=== PATIENT | female | born 1990 | race Caucasian/White ===

== ENCOUNTER 2022-03-18 07:52 | Outpatient (CLI) | payer BC, SELFPAY ==
[2022-03-18 10:43] LABS: Cholesterol* 170 mg/dL (90-199); Glucose* 106 mg/dL (60-115); Triglycerides* 92 mg/dL (40-149)
[2022-03-18 10:44] LABS: HDL Cholesterol* 65 mg/dL (>=50); LDL Cholesterol Calculated 87 mg/dL (<100)
== END 2022-03-18 07:53 | disposition home or self-care (01) ==
PROVIDERS: Visit Provider Physician Assistant
DX: Z13.6 Encounter for screening for cardiovascular disorders (principal); Z13.1 Encounter for screening for diabetes mellitus
CPT/HCPCS: 80061; 82947

== ENCOUNTER 2022-06-17 08:45 | Outpatient (CLI) | payer BC, SELFPAY | END 2022-06-17 08:46 | disposition home or self-care (01) | LOC: NFLDREF 08:46 | PROVIDERS: Visit Provider Registered Nurse | DX: Z13.29 Encounter for screening for other suspected endocrine disorder (principal); Z13.1 Encounter for screening for diabetes mellitus | CPT/HCPCS: 84443 ==

== ENCOUNTER 2022-10-27 15:04 | Outpatient (CLI) | payer BC, SELFPAY | END 2022-10-27 15:05 | disposition home or self-care (01) | LOC: NFLDREF 15:06 | PROVIDERS: Visit Provider Registered Nurse | DX: Z31.69 Encounter for other general counseling and advice on procreation (principal) | CPT/HCPCS: 84144 ==

== ENCOUNTER 2022-11-03 10:24 | Outpatient (CLI) | payer BC, SELFPAY | END 2022-11-03 10:25 | disposition home or self-care (01) | LOC: LONREF 10:26 | PROVIDERS: Visit Provider Registered Nurse | DX: N97.9 Female infertility, unspecified (principal); Z31.69 Encounter for other general counseling and advice on procreation | CPT/HCPCS: 84144 ==

== ENCOUNTER 2022-11-14 10:13 | Outpatient (CLI) | payer BC, SELFPAY ==
[2022-11-15 07:26] LABS: Follicle Stimulating Hormone 12.2 IU/L
[2022-11-15 07:32] LABS: Estradiol Premenol Female 52 pg/mL
== END 2022-11-14 10:14 | disposition home or self-care (01) ==
LOC: LAB 10:14
PROVIDERS: Obstetrics & Gynecology; Visit Provider Registered Nurse
DX: Z01.818 Encounter for other preprocedural examination (principal); Z31.9 Encounter for procreative management, unspecified
CPT/HCPCS: 36415; 82670; 83001; 84443

== ENCOUNTER 2022-11-16 10:50 | Outpatient (CLI) | payer BC, SELFPAY ==
--- NOTE | 2022-11-16 11:15 | CRLHL7_ITS ---
For Patients: As a result of the Cures Act, medical imaging exams and procedure reports are released immediately into your electronic medical record. You may view this report before your referring provider. If you have questions, please contact your health care provider. Indication: Encounter for procreative management Technique: Hysterosalpingogram. Fluoroscopic time 0.29 minutes. IMPRESSION: Normal patency of the fallopian tubes with spillage into the peritoneal cavity. No filling defect within the endometrial canal. Dictated by Karan Mercado MD @ 11/16/2022 12:49:32 PM (Electronically Signed)
--- NOTE | 2022-11-16 16:37 | W.PM.GYNPROC ---
Procedure Note Date of procedure: 11/16/22 Pre-op diagnosis: Primary infertility Post-op diagnosis: same Procedure: Hysterosalpingogram Anesthesia: none Complications: None Surgeon: Marcie Berg MD Pathology: none sent Findings: Patent fallopian tubes bilaterally Normal contour of endometrial cavity Procedure Description: After obtaining verbal consent, the patient was placed in the dorsal lithotomy position on the x-ray table. An open-sided bivalve speculum was introduced into the vagina and the cervix easily visualized. The cervix and vagina were then prepped with Betadine. The anterior lip of the cervix was grasped with a single-tooth tenaculum for traction. A balloon tipped double-lumen catheter was then gently inserted through the cervical opening into the uterine cavity to the level of the fundus. The balloon was insufflated with 3 mL of air, causing intolerable pain to the patient. The balloon was then deflated to 1.5 mL of air. The [speculum was removed. The patient was repositioned in the supine position, covered, and the radiologist was called to the room. A hysterosalpingogram was then performed. A total of approximately 4 cc of Optiray 300 water soluble contrast dye was injected through the double-lumen catheter under moderate pressure. There was immediate fill of the uterine cavity to the cornua and immediate fill of both fallopian tubes and free spillage on each side. The balloon was deflated and the endometrial cavity was found to have a normal contour. The catheter was removed. The tenaculum was removed from the cervix and speculum exam revealed hemostasis. The patient tolerated the procedure with great difficulty due to intense cramping during the procedure. She did feel sweaty and lightheaded afterwards, and was given water and a snack.
== END 2022-11-16 10:51 | disposition home or self-care (01) ==
PROVIDERS: Visit Provider Obstetrics & Gynecology
DX: Z31.9 Encounter for procreative management, unspecified (principal)
CPT/HCPCS: 58340; 74740; 83520; A4649; Q9967

== ENCOUNTER 2022-12-15 15:12 | Outpatient (CLI) | payer BC, SELFPAY | END 2022-12-15 15:13 | disposition home or self-care (01) | PROVIDERS: Visit Provider Registered Nurse | DX: N92.6 Irregular menstruation, unspecified (principal); N97.9 Female infertility, unspecified | CPT/HCPCS: 83498; 84270; 84402; 84403 ==

== ENCOUNTER 2022-12-28 07:13 | Outpatient (CLI) | payer BC, SELFPAY ==
--- NOTE | 2022-12-28 07:15 | CRLHL7_ITS ---
For Patients: As a result of the Century Cures Act, medical imaging exams and procedure reports are released immediately into your electronic medical record. You may view this report before your referring provider. If you have questions, please contact your health care provider. INDICATION: irregular menses, infertility COMPARISON: none TECHNIQUE: 2D meyers scale and color Doppler images were acquired of the pelvis using a transabdominal and transvaginal approach. FINDINGS: A submucosal fibroid is present measuring 1.1 x 0.7 x 1.1 cm. A mid uterine fundal intramural fibroid is present measuring 10 x 7 x 8 millimeters. A small right uterine fundal fibroid also noted measuring 5 x 4 x 6 millimeters. Uterus measures 6.7 cm in length by 3.2 cm in AP diameter by 4.0 cm in transverse dimension. Circumscribed heterogeneously hypoechoic mass in the left adnexa measures 3.6 x 2.1 x 2.1 cm, probable exophytic fibroid. The endometrial lining measures 8 mm in composite thickness. The right ovary measures 3.9 x 1.5 x 2.9 cm in size and the left ovary measures 2.9 x 1.5 x 2.4 cm. The ovaries demonstrate normal arterial and venous blood flow on color Doppler analysis. There are no suspicious fluid collections within the cul-de-sac. IMPRESSION: Submucosal uterine fibroid measuring 1.1 cm. Endometrial thickness 8 millimeters. Left adnexal mass located between the uterus and ovary measuring 3.6 x 2.1 x 2.1 cm. This is likely a pedunculated fibroid although pelvic MRI recommended for confirmation. Other smaller intramural fibroids are present measuring 10 millimeters and 6 millimeters. Dictated by Karan Mercado MD @ 12/28/2022 8:35:44 AM (Electronically Signed)
== END 2022-12-28 07:14 | disposition home or self-care (01) ==
LOC: US 07:13
PROVIDERS: Visit Provider Registered Nurse
DX: N92.6 Irregular menstruation, unspecified (principal); N97.9 Female infertility, unspecified; D25.0 Submucous leiomyoma of uterus; R19.00 Intra-abdominal and pelvic swelling, mass and lump, unspecified site; D25.1 Intramural leiomyoma of uterus
CPT/HCPCS: 76830; 76856

== ENCOUNTER 2023-03-09 10:04 | Outpatient (REF) | payer BC, SELFPAY ==
--- OUTSIDE RECORDS SUMMARY | 2023-03-09 10:07 | XMS_ITS | Clinical Summary ---
Author Name Unknown Organization [facility] [employer] [facility] Address [address] [address] Phone Care Team Providers Care Sugar House Supervisor Name Role Phone Licha Marc Connie [facility] Primary Care Provider +1- [phone] Allergies Active Allergy Reactions Criticality Noted Date Comments Amoxicillin Hives High 01/07/2021 Medications Medication Sig Dispensed Refills Start Date End Date Status Lactobacillus (PROBIOTIC ACIDOPHILUS OR) Take by mouth. 0 Active Calcium Polycarbophil (FIBER-CAPS OR) Take by mouth. 0 Activ e omeprazole (PriLOSEC) 20 MG delayed-release capsuleIndications:Gas troesophageal reflux disease without esophagitis Take 1 Capsule by mouth one time a day. Take before meals. Do not crush. 30 Capsule 0 06/03/2022 Active Active Problems Problem Noted Date Diagnosed Date Generalized abdominal pain 06/24/2021 Last Assessment & Plan: Discussed with patient differential diagnosis of gallbladder disease, GERD, stomach ulcers, irritable bowel, food sensitivities, among other GI disorders. Will check labs today, unremarkable. Due to insurance CT scan will need prior authorization for clinic visit, however US would be a reasonable option to rule out gallbladder issues as this could be a likely culprit. Also discussed issues with GERD and use of antiacids. Will wait for US results and review options from there. If worsening symptoms, pain that increases, dark stools, fevers, follow up in ER. Will follow up with patient after US tomorrow. Spot, [id number] 05/05/2018 Immunizations Name Administration Dates Next Due COVID-19 mRNA Vaccine (Moderna - 18+ Yrs) 2020,04/11/2020,03/14/2020 Influenza (3+ Yrs) NPF-Multi Dose Vial (Flu Clinic) 12/11/2019 Influenza Quad Preservative Free 12/11/2019 Tdap (7 years and older) 05/25/2014,02/15/2009 Surgical History Surgery Date Site/Laterality Comments WISDOM TOOTH EXTRACTION Medical History Medical History Date Comments No pertinent past medical history 05/05/2018 Family History Medical History Relation Comments Breast Cancer Maternal Aunt RV [employer] TW Breast Cancer Paternal Grandfather [employer] TW Colon Cancer Paternal Grandfather RV [employer] TW Other Sister RV [employer] TW - Problem: Family history of Small intestine neoplasm Relation Status Comments Maternal Aunt Paternal Grandfather Sister Social History Tobacco Use Types Packs/Day Years Used Date Smoking Tobacco: Never Passive Smoke Exposure: Never Smokeless Tobacco: Never Alcohol Use Standard Drinks/Week Comments Yes 0 (1 standard drink = 0.6 oz pur e alcohol) rarely PHQ-2 Answer Date Recorded PHQ-2 Total 0 06/02/2022 Sex and Gender Information Value Date Recorded Sex Assigned at Female 12/10/2021 9:19 AM CDT Gender Identity Female 12/10/2021 9:19 AM CDT Sexual Orientation Not on file Obstetrics History Last Filed Vital Signs Vital Sign Reading Time Taken Comments Blood Pressure 118/72 06/29/2022 9:54 AM CDT Pulse 89 06/29/2022 10:07 AM CDT Temperature 36.7 ??C (98 ??F) 06/29/2022 9:54 AM CDT Respiratory Rate 20 06/29/2022 9:54 AM CDT Oxygen Saturation 98% 06/29/2022 9:54 AM CDT Inhaled Oxygen Concentration - - Weight 70.3 kg (155 lb) 06/29/2022 9:54 AM CDT Height 153 cm (5' 0.25) 06/03/2022 3:08 PM CDT Body Mass Index 30.02 06/03/2022 3:08 PM CDT Plan of Treatment Health Maintenance Due Date Last Done Comments Hepatitis B Vaccine (Standing Order) (1 of 3 - 3-dose series) 1988 Last pap w/o HPV Testing 1988 COVID-19 Vaccine ( season) 2022 01/21/2021, 04/11/2020, 03/14/2020 Influenza Vaccine Seasonal (Standing Order) (#1) 2022 12/11/2019, 12/11/2019 Cervical Cancer Screening 04/14/2024 Last pap w/ HPV Testing 04/14/2024 TETANUS (Standing Order) 05/25/2024 015, 02/15/2009 PERTUSSIS (Standing Order) Completed 05/25, 02/15/2009 HPV Vaccine (Standing Order) Aged Out No longer eligible based on patient's age to complete this topic Pneumococcal/PCV20 Vaccine: Pediatrics (2-5 yrs) and At-Risk Patients (6-64 yrs) (Standing Order) Aged Out No longer eligible b ased on patient's age to complete this topic Care Teams Sugar House Supervisor Relationship Specialty Start Date End Date Licha Marc, ESCROW OFFICER [address] [place] [address] PCP - General Family Medicine 09/23/22
--- OUTSIDE RECORDS SUMMARY | 2023-03-09 10:07 | XMS_ITS | Clinical Summary ---
Author Name Unknown Organization [employer] Address [place], [place] [address] Care Team Providers Care Soda Clerk Name Role Phone Pcp, No Primary Care Provider Unavailabl e Allergies Active Allergy Reactions Criticality Noted Date Comments Amoxicillin Hives 03/16/2016 As a baby. Egg White Hives 03/16/2016 Medications No known medications Active Problems No known active problems Immunizations Name Administration Dates Next Due Influenza Virus, Unspecified 12/11/2019 Tdap 05/25/2014,02/15/2009 Family History Medical History Relation Name Comments Cancer-breast Maternal Aunt negative BRCA carrier Drug Abuse Maternal Uncle Allergies Mother negative BRCA Cancer-colon Paternal Grandfather Allergies Sister Other Sister GIST tumor. GI tumor. Pt shares that no screening is needed for herself. Relation Name Status Comments Maternal Aunt Alive Maternal Uncle Mother Paternal Grandfather Sister Social History Tobacco Use Types Packs/Day Years Used Date Smoking Tobacco: Never Smokeless Tobacco: Never Comments:03/24/17 Alcohol Use Standard Drinks/Week Comments Yes 0 (1 standard drink = 0.6 oz pur e alcohol) PHQ-2 Answer Date Recorded PHQ-2 TOTAL SCORE 0 03/13/2020 Social Connections Answer Date Recorded Frequency of Communication with Friends and Fami ly Not on file 02/15/2021 Financial Resource Strain Answer Date R ecorded Difficulty of Paying Living Expenses Not on file 02/15/2021 Difficulty of Paying Living Expenses Not on file 02/15/2021 Sex and Gender Information Value Date Recorded Sex Assigned at Not on file Gender Identity Not on file Sexual Orientation Not on file Obstetrics History Para Term AB IAB SAB Ectopic Multiple Livin g Live Births 0 0 0 0 0 0 0 0 0 0 Last Filed Vital Signs Vital Sign Reading Time Taken Comments Blood Pressure 120/66 03/13/2020 2:10 PM SANITATION TRUCK CLEANER Pulse 81 04/05/2019 8:32 AM SANITATION TRUCK CLEANER Temperature - - Respiratory Rate - - Oxygen Saturation 99% 04/05/2019 8:32 AM SANITATION TRUCK CLEANER Inhaled Oxygen Concentration - - Weight 77.4 kg (170 lb 9.6 oz) 03/13/2020 2:10 P M SANITATION TRUCK CLEANER Height 156 cm (5' 1.42) 03/13/2020 2:10 PM SANITATION TRUCK CLEANER Body Mass Index 31.8 03/13/2020 2:10 PM SANITATION TRUCK CLEANER Plan of Treatment Health Maintenance Due Date Last Done Comments COVID-19 vaccine series (#1) 05/28/1989 HIV for age 15-65 11/28/2003 Hepatitis C screening for age 18-79 2006 BMI (ht and wt on same day) for age 18+ 03/13/2021 03/13/2020, 04/05/2019, 03/30/2018, Additional history exists Depression screening for age 12+ 03/13/2021 03/13/2020, 04/05/2019, 03/30/2018, Additional history exists Influenza for age 9-49 10/16/2022 12/11/2019 Pap test for age 21-65 04/05/2024 0, 04/05/2019, 03/16/2016, Additional history exists Tetanus booster 05/25/2024 05/25/2014, 02/15/2009 Tdap Completed 05/25/2014, 02/15/2009 Pneumococcal series for age 6-64 Aged Out No longer eligible based on patient's age to complete this topic Care Teams Soda Clerk Relationship Specialty Start Date End Date Pcp, No . PCP - General 03/16/16
--- OUTSIDE RECORDS SUMMARY | 2023-03-09 10:08 | XMS_ITS | Encounter Summary ---
Author Name Unknown Organization [facility] [employer] [facility] Address [address] [address] Phone Care Team Providers Care Almond Paste Molder Name Role Phone Elsewhere, Pcp Primary Care Provider Unavailabl e Encounter Details Date Type Department Care Team (Latest Contact Info) Description 06/02/2022 Travel Social History Tobacco Use Types Packs/Day Years [...] AM CDT Sexual Orientation Not on file COVID-19 Exposure Response Date Recorded In the last 10 days, have yo u been in contact with someone who was confirmed or suspected to have Coronavirus/COVID-19? No / Unsure 06/02/2022 6:54 PM CDT documented as of this encounter Plan of Treatment Not on file documented as of this encounter Visit Diagnoses Not on filedocumented in this encounter Care Teams Almond Paste Molder Relationship Specialty Start Date End Date Elsewhere, Pcp PCP - General 05/21/22 06/12/22 documented as of this encounter
--- OUTSIDE RECORDS SUMMARY | 2023-03-09 10:08 | XMS_ITS | Encounter Summary ---
Author Name Unknown Organization [facility] Address [address] [address] Phone Care Team Providers Care Gravel Hauler Name Role Phone Unavailable Primary Care Provider Unavailabl e Reason for Visit * Reason Comments Lab Work Encounter Details Date Type Department Care Team (Late st Contact Info) Description 06/30/2022 8:15 AM CDT ALLIED HEALTH/NURSE VISIT [facility] [address] [place] [address] Lab, Rbpl Laboratory [address] [place] [address] Lab Work Social History Tobacco Use Types Packs/Day Years [...] suspected to have Coronavirus/COVID-19? No / Unsure 06/29/2022 9:16 AM CDT documented as of this encounter Plan of Treatment Not on file documented as of this encounter Procedures Procedure Name Priority Date/Time Associated Diagnosis Comments ENTERIC PATHOGENS BY NUCLEIC ACID TESTING Routine 06/30/2022 8:11 AM CDT Diarrhea, unspecified type Fever, unspecified fever cause documented in this encounter Results * (ABNORMAL) ENTERIC PATHOGENS BY NUCLEIC ACID TESTING (06/30/2022 8:11 AM CDT) Campylobacter Species Not Detected Not Detected 06/30/2022 4:36 PM CDT [facility] Clostridium difficile Toxin A/B Not Detected Not Detected 06/30/2022 4:36 PM [facility] Plesiomonas shigelloides Not Detected Not Detected 06/30/2022 4:36 PM CDT [facility] Salmonella species Not Detected Not Detected 06/30/2022 4:36 PM [facility] Vibrio species Not Detected Not Detected 06/30/2022 4:36 PM [facility] Vibrio cholerae Not Detected Not Detected 06/30/2022 4:36 PM [facility] Yersinia enterocolitica Not Detected Not Detected 06/30/2022 4:36 PM [facility] Enteroaggregative E. coli (EAEC) Not Detected Not Detected 06/30/2022 4:36 PM [facility] Enteropathogenic E. coli (EPEC) Not Detected Not Detected 06/30/2022 4:36 PM [facility] Enterotoxigenic E. coli (ETEC) Not Detected Not Detected 06/30/2022 4:36 PM [facility] Shiga-like Toxin producing E. coli (STEC) Not Detected Not Detected 06/30/2022 4:36 PM [facility] Shigella/Enteroinvas meng E. coli (EIEC) Not Detected Not Detected 06/30/2022 4:36 PM [facility] Cryptosporidium species Not Detected Not Detected 06/30/2022 4:36 PM [facility] Cyclospora cayetanensis Not Detected Not Detected 06/30/2022 4:36 PM [facility] Entamoeba histolytica Not Detected Not Detected 06/30/2022 4:36 PM CDT [facility] Giardia lamblia Not Detected Not Detected 06/30/2022 4:36 PM CDT [facility] Adenovirus F40/41 Not Detected Not Detected 06/30/2022 4:36 PM CDT [facility] Astrovirus Detected(A) Not Detected 06/30/2022 4:36 PM CDT [facility] Norovirus GI/GII Not Detected Not Detected 06/30/2022 4:36 PM CDT [facility] Rotavirus A Not Detected Not Detected 06/30/2022 4:36 PM CDT [facility] Sapovirus Not Detected Not Detected 06/30/2022 4:36 PM CDT [facility] Stool FECES / Unknown Non-blood collection / Unknown 06/30/2022 8:11 AM CDT 06/30/2022 8:11 AM CDT Licha Marc FUNERAL SERVICE MANAGER EC MICROBIOLOGY - GENERAL ORDERABLES Performing Organization Address City/State/[facility] [[email or web address]] Co de Phone Number [facility] [address] [phone] documented in this encounter Visit Diagnoses Diagnosis Diarrhea, unspecified type Fever, unspecified fever cause documented in this encounter Additional Health Concerns Infection Onset Date Last Indicated Resolved Time R/O Enteric Pathogens 06/30/2022 06/30/20222022 4:36 PM CDT documented as of this encounter
--- OUTSIDE RECORDS SUMMARY | 2023-03-09 10:08 | XMS_ITS | Encounter Summary ---
Author Name Unknown Organization [facility] [employer] [facility] Address [address] [address] Phone Care Team Providers Care Home Theater Experience Expert Name Role Phone Monico Licha Connie RUCKER Primary Care Provider +1- [phone] Reason for Visit * Reason Comments Lab Work Encounter Details Date Type Department Care Team (Late st Contact Info) Description 09/23/2022 9:45 AM CDT ALLIED HEALTH/NURSE VISIT [facility] [address] [place] [id number] Lab, Rbpl Laboratory [address] [place] [address] Lab Work Social History Tobacco Use Types [...] suspected to have Coronavirus/COVID-19? No / Unsure 09/23/2022 9:35 AM CDT documented as of this encounter Plan of Treatment Not on file documented as of this encounter Procedures Procedure Name Priority Date/Time Associated Diagnosis Comments HEPATIC FUNCTION PANEL Routine 09/23/2022 9:37 AM CDT Elevated LFTs documented in this encounter Results * HEPATIC FUNCTION PANEL (09/23/2022 9:37 AM CDT) Alkaline Phosphatase 76 38 - 126 U/L 09/23/2022 3:48 PM CDT [facility] Aspartate Aminotransferase 30 14 - 36 U/L 09/23/2022 3:48 PM CDT [facility] Alanine Aminotransferase 23 <35 U/L 09/23/2022 3:48 PM CDT [facility] Protein, Total 7.3 6.3 - 8.2 g/dL 09/23/2022 3:48 PM CDT [facility] Albumin 4.9 3.5 - 5.0 g/dL 09/23/2022 3:48 PM CDT [facility] Bilirubin, Total 0.5 0.2 - 1.3 mg/dL 09/23/2022 3:48 PM T [facility] Bilirubin, Direct 0.00 <=0.30 mg/dL 09/23/2022 3:48 PM T [facility] Bilirubin, Indirect 0.38 <=1.10 mg/dL 09/23/2022 3:48 PM T [facility] Blood BLOOD SPECIMEN / Unknown Venipuncture / Unknown 09/23/2022 9:37 AM CDT 09/23/2022 9:37 AM CDT Licha Marc CNP EC CHEMISTRY ORDER TY [facility] [address] [place], [place] [id number] [place] [address] documented in this encounter Visit Diagnoses Diagnosis Elevated LFTs Other abnormal blood chemistry documented in this encounter Care Teams Home Theater Experience Expert Relationship Specialty Start Date End Date Licha Marc CNP [address] [place], [place] [address]E [place]DSON [address] PCP - General Family Medicine 09/23/22 documented as of this encounter
--- OUTSIDE RECORDS SUMMARY | 2023-03-09 10:08 | XMS_ITS | Encounter Summary ---
Author Name Unknown Organization [employer] [facility] Address [address] [address] Phone Care Team Providers Care Rim Fire Charger Operator Name Role Phone Unavailable Primary Care Provider Unavailabl e Encounter Details Date Type Department Care Team (Latest Contact Info) Description 06/29/2022 Travel Social History Tobacco Use Types Packs/Day [...]
--- OUTSIDE RECORDS SUMMARY | 2023-03-09 10:08 | XMS_ITS | Encounter Summary ---
Author Name Unknown Organization [facility] [employer] [facility] Address [address] [address] Phone Care Team Providers Care Door Person Name Role Phone Elsewhere, Pcp Primary Care Provider Unavailabl e Encounter Details Date Type Department Care Team (Latest Contact Info) Description 05/21/2022 Travel Social History Tobacco Use Types Packs/Day Years Used Date Smoking Tobacco: Never Passive Smoke Exposure: Never Smokeless Tobacco: Never Alcohol Use Standard Drinks/Week Comments Yes 0 (1 standard drink = 0.6 oz pur e alcohol) rarely PHQ-2 Answer Date Recorded PHQ-2 Total 0 06/23/2021 Sex and Gender Information Value Date Recorded Sex Assigned at Female 12/10/2021 9:19 AM CDT Gender Identity Female 12/10/2021 9:19 AM CDT Sexual Orientation Not on file COVID-19 Exposure Response Date Recorded In the last 10 days, have yo u been in contact with someone who was confirmed or suspected to have Coronavirus/COVID-19? No / Unsure 05/21/2022 8:34 AM CDT documented as of this encounter Plan of Treatment Not on file documented as of this encounter Visit Diagnoses Not on filedocumented in this encounter Care Teams Door Person Relationship Specialty Start Date End Date Elsewhere, Pcp PCP - General 05/21/22 06/12/22 documented as of this encounter
--- OUTSIDE RECORDS SUMMARY | 2023-03-09 10:08 | XMS_ITS | Encounter Summary ---
Author Name Unknown Organization [facility] [employer] [facility] Address [address] [address] Phone Care Team Providers Care Thread Roller Name Role Phone Elsewhere, Pcp Primary Care Provider Unavailabl e Encounter Details Date Type Department Care Team (Latest Contact Info) Description 06/12/2022 Travel Social History Tobacco Use Types Packs/Day [...] suspected to have Coronavirus/COVID-19? No / Unsure 06/12/2022 8:38 AM CDT documented as of this encounter Plan of Treatment Not on file documented as of this encounter Visit Diagnoses Not on filedocumented in this encounter Care Teams Thread Roller Relationship Specialty Start Date End Date Elsewhere, Pcp PCP - General 05/21/22 06/12/22 documented as of this encounter
--- OUTSIDE RECORDS SUMMARY | 2023-03-09 10:08 | XMS_ITS | Encounter Summary ---
Author Name Unknown Organization [facility] [employer] [facility] Address [address] [address] Phone Care Team Providers Care Fashion Marketer Name Role Phone Unavailable Primary Care Provider Unavailabl e Reason for Referral * Office Visit (Routine) - Authorized Specialty Diagnoses / Procedures Referred By Contac t Referred To Contact Gastroenterology Diagnoses Diarrhea, unspecified type Licha Marc CNP [address] [place] [address] [place] [address] Referral ID Status Reason Start Date Expiration Date V isits Requested Visits Authorized [id number] Authorized 06/29/2022 06/29/2023 1 1 Comments Appt with Gastroenterology: GI Consult (NOT for requesting endoscopy procedure) For outside referrals, enter Unknown for Location or Provider if unable to find and enter name and location of desired provider here. Reason for Referral: Patient has recurring diarrhea, sometimes with fever. No abdominal pain. NO blood in stools. Reason for Visit * Reason Comments Abdominal Pain Diarrhea Encounter Details Date Type Department Care Team (Late st Contact Info) Description 06/29/2022 10:00 AM CDT Office Visit [facility] [address] [facility] [place] [address] Licha Marc CNP [address] [place] [address] Diarrhea, unspecified type (Primary Dx); Fever, unspecified fever cause Social History Tobacco Use Types Packs/Day Years [...] AM CDT documented as of this encounter Last Filed Vital Signs Vital Sign Reading Time Taken Comments Blood Pressure 118/72 06/29/2022 9:54 AM CDT Pulse 89 06/29/2022 10:07 AM CDT Temperature 36.7 ??C (98 ??F) 06/29/2022 9:54 AM CDT Respiratory Rate 20 06/29/2022 9:54 AM CDT Oxygen Saturation 98% 06/29/2022 9:54 AM CDT Inhaled Oxygen Concentration - - Weight 70.3 kg (155 lb) 06/29/2022 9:54 AM CDT Height - - Body Mass Index 30.02 06/03/2022 3:08 PM CDT documented in this encounter Patient Instructions * Patient Instructions* Licha Marc CNP - 06/29/2022 10:00 AM CDT Problem List Items Addressed This Visit None Visit Diagnoses Diarrhea, unspecified type - Primary Relevant Orders APPT WITH GASTROENTEROLOGY CLINIC CC ENTERIC PATHOGENS BY NUCLEIC ACID TESTING (Completed) Fever, unspecified fever cause Relevant Orders HEMOGRAM/DIFFERENTIAL (Completed) ENTERIC PATHOGENS BY NUCLEIC ACID TESTING (Completed) If your provider has ordered a radiology test that needs to be scheduled at any of the [facility] facilities, for your convenience and to offer you the best service, we ask that you contact the [facility] directly at [phone]. If you have an Ultrasound or DEXA order from [facility], those are performed directly by them. Please call [phone] ([place]) or [phone] ([place]) to schedule those tests. documented in this encounter Progress Notes * Licha Marc CNP - 06/29/2022 10:00 AM CDT Subjective Padma Kay is a(n) 31 year old female who presents today for: Abdominal Pain and Diarrhea Rooming notes: Patient presents with recurring diarrhea, abdominal pain. Had a similar occurrence before, which began May 16. Had labs and abd ultrasound 06/13. Cannot eat anything without it going right thru her. Eats saltines at most. This recent occurrence started on Wednesday morning. Isn't sureif she has norovirus again or something else. HISTORY OF PRESENT ILLNESS: See above rooming note. Her symptoms started on Wednesday. Has not had no travel. Denies abdominal pain nausea or vomiting. No blood in the stools. States has been having a bowel movement every 30 minutes. Is able to drink water and fluids. Appetite has been decreased. States temperature was 100 over the weekend. Patient had similar illness a few weeks ago or lab work and ultrasound were completed. These were all within normal limits. Objective BP 118/72 (BP Location: Right arm, BP Patient Position: Sitting, Cuff Size: Adult Regular) Pulse 89 Temp 36.7 ??C (98 ??F) (Temporal) Resp 20 Wt 70.3 kg (155 lb) SpO2 98% BMI 30.02 kg/m?? Physical Exam Vitals reviewed. Constitutional: Appearance: Normal appearance. HENT: Head: Normocephalic. Right Ear: Tympanic membrane normal. Left Ear: Tympanic membrane normal. Mouth/Throat: Mouth: Mucous membranes are moist. Pharynx: Oropharynx is clear. Eyes: Conjunctiva/sclera: Conjunctivae normal. Cardiovascular: Rate and Rhythm: Normal rate and regular rhythm. Heart sounds: Normal heart sounds. Pulmonary: Effort: Pulmonary effort is normal. Breath sounds: Normal breath sounds. Skin: General: Skin is warm. Capillary Refill: Capillary refill takes less than 2 seconds. Neurological: General: No focal deficit present. Mental Status: She is alert and oriented to person, place, and time. Psychiatric: Mood and Affect: Mood normal. Behavior: Behavior normal. Assessment/Plan ASSESSMENT 1. Diarrhea, unspecified type (Primary) - APPT WITH GASTROENTEROLOGY CLINIC CC - ENTERIC PATHOGENS BY NUCLEIC ACID TESTING 2. Fever, unspecified fever cause - HEMOGRAM/DIFFERENTIAL - ENTERIC PATHOGENS BY NUCLEIC ACID TESTING PLAN 1. Stool culture was ordered, especially since this is a second bout of diarrheal illness in the past couple months. No signs of dehydration. Vital signs stable. Since patient had reported temperature of 100 we will check hemogram also today. GI consult was ordered due to multiple bouts of diarrhea without abdominal pain. May not need this if condition resolves. I think this is just a viral process that just needs to run its course. Advised patient she could take Imodium intermittently. Encouraged patient to go to emergency department if signs of dehydration, blood in the stools, increasing abdominal pain or fevers. Patient states understanding. FOLLOW UP Return if symptoms worsen or fail to improve. documented in this encounter Miscellaneous Notes * Clinical Note - Santos Koehler, RN - 06/29/2022 10:00 AM CDT Patient presents with recurring diarrhea, abdominal pain. Had a similar occurrence before, which began May 16. Had labs and abd ultrasound 06/13. Cannot eat anything without it going right thru her. Eats saltines at most. This recent occurrence started on Wednesday morning. Isn't sure if she has norovirus again or something else. documented in this encounter Plan of Treatment Scheduled Referrals Name Type Priority Associated Diagnoses Orde r Schedule APPT WITH GASTROENTEROLOGY CLINIC CC REFERRAL Routine Diarrhea, unspecified type Ordered: 06/29/2022 documented as of this encounter Procedures Procedure Name Priority Date/Time Associated Diagnosis Comments HEMOGRAM/DIFF Routine 06/29/2022 10:14 AM CDT Fever, unspecified fever cause documented in this encounter Results * (ABNORMAL) ENTERIC PATHOGENS BY NUCLEIC ACID TESTING (06/30/2022 8:11 AM CDT) Pathologist [facility] Campylobacter Species Not Detected Not Detected 06/30/2022 4:36 PM CDT [facility] Clostridium difficile Toxin A/B Not Detected Not Detected 06/30/2022 4:36 PM CDT [facility] Plesiomonas shigelloides Not Detected Not Detected 06/30/2022 4:36 PM CDT [facility] Salmonella species Not Detected Not Detected 06/30/2022 4:36 PM CDT [facility] Vibrio species Not Detected Not Detected 06/30/2022 4:36 PM CDT [facility] Vibrio cholerae Not Detected Not Detected 06/30/2022 4:36 PM [facility] Yersinia enterocolitica Not Detected Not Detected 06/30/2022 4:36 PM [facility] Enteroaggregative E. coli (EAEC) Not Detected Not Detected 06/30/2022 4:36 PM CDT [facility] Enteropathogenic E. coli (EPEC) Not Detected Not Detected 06/30/2022 4:36 PM [facility] Enterotoxigenic E. coli (ETEC) Not Detected Not Detected 06/30/2022 4:36 PM [facility] Shiga-like Toxin producing E. coli (STEC) Not Detected Not Detected 06/30/2022 4:36 PM [facility] Shigella/Enteroinvas meng E. coli (EIEC) Not Detected Not Detected 06/30/2022 4:36 PM CDT [facility] Cryptosporidium species Not Detected Not Detected 06/30/2022 4:36 PM CDT [facility] Cyclospora cayetanensis Not Detected Not Detected 06/30/2022 4:36 PM [facility] Entamoeba histolytica Not Detected Not Detected 06/30/2022 4:36 PM CDT [facility] Giardia lamblia Not Detected Not Detected 06/30/2022 4:36 PM [facility] Adenovirus F40/41 Not Detected Not Detected 06/30/2022 4:36 PM CDT [facility] Astrovirus Detected(A) Not Detected 06/30/2022 4:36 PM CDT [facility] Norovirus GI/GII Not Detected Not Detected 06/30/2022 4:36 PM CDT [facility] Rotavirus A Not Detected Not Detected 06/30/2022 4:36 PM CDT [facility] Sapovirus Not Detected Not Detected 06/30/2022 4:36 PM CDT [facility] Stool FECES / Unknown Non-blood collection / Unknown 06/30/2022 8:11 AM CDT 06/30/2022 8:11 AM CDT Licha Marc INPATIENT SERVICES RN EC MICROBIOLOGY - GENERAL ORDERABLES [facility] [address] [phone] * (ABNORMAL) HEMOGRAM/DIFFERENTIAL (06/29/2022 10:14 AM CDT) WBC 6.2 4.0 - 11.0 X10*3u/L 06/29/2022 10:24 AM CDT [facility] RBC 4.58 3.80 - 5.20 X10*6/uL 06/29/2022 10:24 AM CDT [facility] HGB 13.5 12.0 - 16.0 g/dl 06/29/2022 10:24 AM CDT [facility] HCT 37.8 35.0 - 47.0 % 06/29/2022 10:24 AM CDT [facility] MCV 82.5 80 - 98 fL 06/29/2022 10:24 AM CDT [facility] MCH 29.5 27.0 - 34.0 pg 06/29/2022 10:24 AM CDT [facility] MCHC 35.7 32 - 36 g/dl 06/29/2022 10:24 AM CDT [facility] PLT 426(H) 150 - 420 X10*3/uL 06/29/2022 10:24 AM CDT [facility] Neutrophils Absolute 4.19 2.10 - 7.50 x10*3u/L 06/29/2022 10:24 AM CDT [facility] Lymphocytes Absolute 1.41 0.76 - 4.00 x10*3u/L 06/29/2022 10:24 AM CDT [facility] Monocytes Absolute 0.55 0.00 - 0.90 x10*3u/L 06/29/2022 10:24 AM T [facility] Eosinophils Absolute 0.03(L) 0.04 - 0.54 x10*3u/L 06/29/2022 10:24 AM T [facility] Basophils Absolute 0.04 0.00 - 0.20 x10*3u/L 06/29/2022 10:24 AM T [facility] RDW-CV 12.7 11.6 - 14.4 % 06/29/2022 10:24 AM T [facility] RDW-SD 37.9 36.5 - 46.3 fL 06/29/2022 10:24 AM [facility] Blood BLOOD SPECIMEN / Unknown Venipuncture / Unknown 06/29/2022 10:14 AM CDT 06/29/2022 10:14 AM CDT Licha Marc COUNT INCLUDES THE [facility] HEMATOLOGY SHIKHA CARO [facility] Organization Address City/State/[facility] Co de Phone Number [id number] [place] [address] documented in this encounter Visit Diagnoses Diagnosis Diarrhea, unspecified type- Primary Fever, unspecified fever cause documented in this encounter
--- OUTSIDE RECORDS SUMMARY | 2023-03-09 10:08 | XMS_ITS | Encounter Summary ---
Author Name Unknown Organization [facility] Address [address] [address] Phone Care Team Providers Care Pastry Sous Chef Name Role Phone Unavailable Primary Care Provider Unavailabl e Encounter Details Date Type Department Care Team (Latest Contact Info) Description 06/13/2022 8:30 AM CDT Ancillary Procedure [facility] RADIOLOGY ULTRASOUND [address] [facility] [place] [id number] Licha Marc, ASSISTANT HOUSEKEEPING MANAGER [address] [address] Generalized abdominal pain Social History Tobacco Use Types Packs/Day Years [...] Procedure Name Priority Date/Time Associated Diagnosis Comments US ABDOMEN LIMITED Routine 06/13/2022 10 :11 AM CDT Generalized abdominal pain documented in this encounter Results * US ABDOMEN LIMITED (06/13/2022 10:11 AM CDT) Anatomical Region Laterality Modality Abdomen Ultrasound 06/13/2022 9:40 AM CDT Narrative 06/14/2022 7:24 AM CDT PROCEDURE: US ABDOMEN LIMITED. HISTORY: Generalized abdominal pain. COMPARISON: Ultrasound 06/24/2021. TECHNIQUE: Grayscale and color Doppler sonographic imaging of the right upper abdomen was performed. FINDINGS: Visualized portions of the pancreas, abdominal aorta, and IVC are unremarkable. The liver appears normal in contour and echogenicity. No focal hepatic lesion or intrahepatic biliary dilatation. The gallbladder wall is normal in thickness at 2 mm. No gallstones or echogenic sludge identified. Common bile duct measures 2 mm diameter. The right kidney is 10.5 cm in length and without hydronephrosis. IMPRESSION: Negative right upper abdominal ultrasound. Electronically signed by Aleksandar Marinelli MD Report Date: 06/14/2022 7:24 AM Procedure Note Aleksandar Marinelli MD - 06/14/2022 PROCEDURE: US ABDOMEN LIMITED. HISTORY: Generalized abdominal pain. COMPARISON: Ultrasound 06/24/2021. TECHNIQUE: Grayscale and color Doppler sonographic imaging of the rightupper abdomen was performed. FINDINGS: Visualized portions of the pancreas, abdominal aorta, and IVC areunremarkable. The liver appears normal in contour and echogenicity. No focal hepaticlesion or intrahepatic biliary dilatation. The gallbladder wall is normal inthickness at 2 mm. No gallstones or echogenic sludge identified. Common bile ductmeasures 2 mm diameter. The right kidney is 10.5 cm in length and withouthydronephrosis. IMPRESSION: Negative right upper abdominal ultrasound. Electronically signed by Aleksandar Marinelli MD Report Date: 06/14/2022 7:24 AM Licha Marc ASSISTANT HOUSEKEEPING MANAGER EC US ORDERABLES documented in this encounter Visit Diagnoses Diagnosis Generalized abdominal pain Abdominal pain, generalized documented in this encounter
--- OUTSIDE RECORDS SUMMARY | 2023-03-09 10:08 | XMS_ITS | Encounter Summary ---
Author Name Unknown Organization [facility] [email or web address] [facility] Address [address] [address] Phone Care Team Providers Care Flap Maker Name Role Phone Elsewhere, Pcp Primary Care Provider Unavailabl e Reason for Visit * Reason Comments Diarrhea Encounter Details Date Type Department Care Team (Late st Contact Info) Description 05/21/2022 8:35 AM CDT Office Visit [facility] [address] [place] [address] Nany Erwin, RECEPTION INTERVIEWER, REGISTERED VETERINARY TECHNICIAN [address] [place], [place] [id number] Diarrhea, unspecified type (Primary Dx); Gastroenteritis Social History Tobacco Use Types Packs/Day Years Used Date Smoking Tobacco: Never Passive Smoke Exposure: Never Smokeless Tobacco: Never Tobacco Cessation:Counseling Given: Not Answered Alcohol Use Standard Drinks/Week Comments Yes 0 [...] Sign Reading Time Taken Comments Blood Pressure 133/89 05/21/2022 8:55 AM CDT Pulse 93 05/21/2022 8:55 AM CDT Temperature 36.4 ??C (97.6 ??F) 05/21/2022 8:55 AM CD T Respiratory Rate 20 05/21/2022 8:55 AM CDT Oxygen Saturation 97% 05/21/2022 8:55 AM CDT Inhaled Oxygen Concentration - - Weight 74.4 kg (164 lb) 05/21/2022 8:55 AM CDT Height - - Body Mass Index 30.99 06/23/2021 1:29 PM CDT documented in this encounter Patient Instructions * Patient Instructions* Nany Erwin APRN, CNP - 05/21/2022 8:35 AM CDT Make sure you are drinking fluids Take the probiotic Okay to use Imodium AD if worsening symptoms If you develop severe abd pain or unable to keep fluids down go the ER. * Attachments The following attachments cannot be sent through Care Everywhere. * Viral Gastroenteritis (Telugu) documented in this encounter Ordered Prescriptions Prescription Sig Dispensed Refills Start Date End Da te saccharomyces boulardii (Florastor) 250 MG capsuleIndications:Diar johanna, unspecified type,Gastroenteritis Take 1 Capsule by mouth two times a day for 7 days. Capsules may be opened and sprinkled on food. 14 Capsule 0 05/21/2022 05/28/2022 documented in this encounter Progress Notes * Nany Erwin APRN, CNP - 05/21/2022 8:35 AM CDT Birgit Rouse is a 31 year old female who presents for 31 year old female presents to the clinic with concerns of ongoing loose stools. Onset: Wednesday afternoon she felt off, patient took Tums before bed and Wednesday woke-up with loose stool, but no vomiting. Patient is nauseated since Wednesday, Fever at some point on Wednesday it was 99.7, Wednesday night into Wednesday it was 101. Feels like she is fine in the evening around 6pm it getsworse. Has been eating crackers and drinking sips of water and Gaterlyte (like Pedialyte). Has been taking tylenol, tums and kaopectate Diarrhea States she was improved yesterday but then this am had several episodes of diarrhea again. No abd pain but will get crampy prior to the diarrhea. No recent antibiotics. 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 Objective BP 133/89 (BP Location: Right arm, BP Patient Position: Sitting, Cuff Size: Adult Regular) Pulse 93 Temp 36.4 ??C (97.6 ??F) (Temporal) Resp 20 Wt 74.4 kg (164 lb) SpO2 97% BMI 30.99 kg/m?? Physical Exam Vitals and nursing note reviewed. Constitutional: Appearance: Normal appearance. HENT: Right Ear: Tympanic membrane, ear canal and external ear normal. Left Ear: Tympanic membrane, ear canal and external ear normal. Nose: Nose normal. Mouth/Throat: Mouth: Mucous membranes are moist. Pharynx: Oropharynx is clear. Cardiovascular: Rate and Rhythm: Normal rate and regular rhythm. Heart sounds: Normal heart sounds. Pulmonary: Effort: Pulmonary effort is normal. Breath sounds: Normal breath sounds. Abdominal: General: Abdomen is protuberant. Bowel sounds are increased. Palpations: Abdomen is soft. Tenderness: There is generalized abdominal tenderness. Musculoskeletal: Cervical back: Normal range of motion. Skin: General: Skin is warm. Neurological: Mental Status: She is alert. Procedures Assessment/Plan 1. Diarrhea, unspecified type (Primary) - saccharomyces boulardii (Florastor) 250 MG capsule; Take 1 Capsule by mouth two times a day for 7days. Capsules may be opened and sprinkled on food. 2. Gastroenteritis - saccharomyces boulardii (Florastor) 250 MG capsule; Take 1 Capsule by mouth two times a day for 7days. Capsules may be opened and sprinkled on food. Make sure you are drinking fluids Take the probiotic Okay to use Imodium AD if worsening symptoms If you develop severe abd pain or unable to keep fluids down go the ER. documented in this encounter Miscellaneous Notes * Clinical Note - Shira Campos RN - 05/21/2022 8:35 AM CDT 31 year old female presents to the clinic with concerns of ongoing loose stools. Onset: Wednesday she felt off, patient took Tums before bed and Wednesday woke-up with loose stool, but no vomiting. Patient is nauseated since Wednesday, Fever at some point on Wednesday it was 99.7, Wednesday night into Wednesday it was 101. Feels like she is fine in the evening around 6pm it getsworse. Has been eating crackers and drinking sips of water and Gaterlyte (like Pedialyte). Has been taking tylenol, tums and kaopectate documented in this encounter Plan of Treatment Not on file documented as of this encounter Visit Diagnoses Diagnosis Diarrhea, unspecified type- Primary Gastroenteritis Other and unspecified noninfectious gastroenteritis and colitis documented in this encounter Care Teams Flap Maker Relationship Specialty Start Date End Date Elsewhere, Pcp PCP - General 05/21/22 06/12/22 documented as of this encounter
--- OUTSIDE RECORDS SUMMARY | 2023-03-09 10:08 | XMS_ITS | Encounter Summary ---
Author Name Unknown Organization [facility] Address [address] [address] Phone Care Team Providers Care Day Care Teacher Name Role Phone Licha Marc CNP Primary Care Provider [phone] Encounter Details Date Type Department Care Team (Latest Contact Info) Description 09/23/2022 Travel Social History Tobacco Use Types Packs/Day [...] on filedocumented in this encounter Care Teams Day Care Teacher Relationship Specialty Start Date End Date [place] [id number] PCP - General Family Medicine 09/23/22 documented as of this encounter
--- OUTSIDE RECORDS SUMMARY | 2023-03-09 10:08 | XMS_ITS | Encounter Summary ---
Author Name Unknown Organization [employer] [facility] Address [address] [address] Phone Care Team Providers Care Ichthyologist Name Role Phone Elsewhere, Pcp Primary Care Provider Unavailabl e Reason for Visit * Reason Comments Establish Care Abdominal Pain Encounter Details Date Type Department Care Team (Latest Contact Info) Description 06/03/2022 3:00 PM CDT Office Visit [facility] [address] [place] [address] Licha Marc, MATTRESS STRIPPER [address] [place], [place] [id number] Gastroesophageal reflux disease without esophagitis (Primary Dx); Generalized abdominal pain Social History Tobacco Use [...] PM CDT documented as of this encounter Last Filed Vital Signs Vital Sign Reading Time Taken Comments Blood Pressure 122/74 06/03/2022 3:08 PM CDT Pulse 79 06/03/2022 3:08 PM CDT Temperature 36.5 ??C (97.7 ??F) 06/03/2022 3:08 PM CD T Respiratory Rate 16 06/03/2022 3:08 PM CDT Oxygen Saturation 97% 06/03/2022 3:08 PM CDT Inhaled Oxygen Concentration - - Weight 73.5 kg (162 lb) 06/03/2022 3:08 PM CDT Height 153 cm (5' 0.25) 06/03/2022 3:08 PM CDT Body Mass Index 31.38 06/03/2022 3:08 PM CDT documented in this encounter Patient Instructions * Patient Instructions* Licha Marc CNP - 06/03/2022 3:00 PM CDT Problem List Items Addressed This Visit Generalized abdominal pain Relevant Medications Calcium Polycarbophil (FIBER-CAPS OR) omeprazole (PriLOSEC) 20 MG delayed-release capsule Other Relevant Orders COMPREHENSIVE METABOLIC PANEL (Completed) Other Visit Diagnoses Gastroesophageal reflux disease without esophagitis - Primary Relevant Medications omeprazole (PriLOSEC) 20 MG delayed-release capsule If your provider has ordered a radiology test that needs to be scheduled at any of the [place] facilities, for your convenience and to offer you the best service, we ask that you contact the [facility] directly at [phone]. If you have an Ultrasound or DEXA order from [facility], those are performed directly by them. Please call [phone] ([place]) or [phone] ([place]) to schedule those tests. documented in this encounter Ordered Prescriptions Prescription Sig Dispensed Refills Start Date End Da te omeprazole (PriLOSEC) 20 MG delayed-release capsuleIndications:Gastro esophageal reflux disease without esophagitis Take 1 Capsule by mouth one time a day. Take before meals. Do not crush. 30 Capsule 0 06/03/2022 documented in this encounter Progress Notes * Licha Marc CNP - 06/03/2022 3:00 PM CDT Subjective Padma Kay is a(n) 31 year old female who presents today for: Establish Care and Abdominal Pain Rooming notes: Pt here to establish care. She has also has 2 episodes of extreme upper abd pain in the past 2 weeks. She was seen in for stomach bug recently also. HISTORY OF PRESENT ILLNESS: See above rooming note. Patient has been experiencing RUQ abdomen, mid upper abdominal pain a couple of times the past two weeks. Did have macaroni and cheese while out eating one night prior to an episode. No nausea or vomiting. No fevers.Has tried Tums, unsure if this is helping. Describes pain as stabbing. No fevers. No shortness of breath. No diarrhea/constipation. No pain at this time. Objective BP 122/74 Pulse 79 Temp 36.5 ??C (97.7 ??F) (Temporal) Resp 16 Ht 1.53 m (5' 0.25) Wt 73.5 kg (162 lb) SpO2 97% BMI 31.38 kg/m?? Physical Exam Constitutional: Appearance: Normal appearance. HENT: Head: Normocephalic. Right Ear: Tympanic membrane normal. Left Ear: Tympanic membrane normal. Nose: Nose normal. Mouth/Throat: Mouth: Mucous membranes are moist. Pharynx: Oropharynx is clear. Eyes: Conjunctiva/sclera: Conjunctivae normal. Pupils: Pupils are equal, round, and reactive to light. Cardiovascular: Rate and Rhythm: Normal rate and regular rhythm. Heart sounds: Normal heart sounds. Pulmonary: Effort: Pulmonary effort is normal. Breath sounds: Normal breath sounds. Abdominal: General: Abdomen is flat. Bowel sounds are normal. There is no distension. Palpations: Abdomen is soft. There is no mass. Tenderness: There is no abdominal tenderness. There is no guarding or rebound. Hernia: No hernia is present. Musculoskeletal: General: Normal range of motion. Cervical back: Normal range of motion. Skin: General: Skin is warm and dry. Neurological: General: No focal deficit present. Mental Status: She is alert and oriented to person, place, and time. Psychiatric: Mood and Affect: Mood normal. Behavior: Behavior normal. Assessment/Plan ASSESSMENT 1. Gastroesophageal reflux disease without esophagitis (Primary) - omeprazole (PriLOSEC) 20 MG delayed-release capsule; Take 1 Capsule by mouth one time a day. Takebefore meals. Do not crush. 2. Generalized abdominal pain - COMPREHENSIVE METABOLIC PANEL PLAN 1. Unsure of cause of upper abdominal pain. Could be gastric reflux versus gall bladder. Will startpatient on omeprazole to see if this helps symptoms. Will also check CMP. IF LFTs elevated and/or symptoms continue will consider ultrasound. Advised to go to ED if develops fevers, worsening abdominal pain or other concerning symptoms. FOLLOW UP Return if symptoms worsen or fail to improve. documented in this encounter Miscellaneous Notes * Clinical Note - Shanelle Barbosa CMA - 06/03/2022 3:00 PM CDT Pt here to establish care. She has also has 2 episodes of extreme upper abd pain in the past 2 weeks. She was seen in UC for stomach bug recently also. documented in this encounter Plan of Treatment Not on file documented as of this encounter Procedures Procedure Name Priority Date/Time Associated Diagnosis Comments COMPREHENSIVE METABOLIC PANEL Routine 06/03/2022 3:48 PM CDT Generalized abdominal pain documented in this encounter Results * (ABNORMAL) COMPREHENSIVE METABOLIC PANEL (06/03/2022 3:48 PM CDT) Sodium 139 135 - 144 mmol/L 06/04/2022 8:46 AM [facility] Potassium 4.6 3.4 - 5.1 mmol/L 06/04/2022 8:46 AM [facility] Chloride 100 98 - 107 mmol/L 06/04/2022 8:46 AM [facility] Carbon Dioxide 27 22 - 30 mmol/L 06/04/2022 8:46 AM [facility] Calcium 9.7 8.6 - 10.3 mg/dL 06/04/2022 8:46 AM [facility] Alkaline Phosphatase 118 38 - 126 U/L 06/04/2022 8:46 AM [facility] Aspartate Aminotransferase 42(H) 14 - 36 U/L 06/04/2022 8:46 AM [facility] Alanine Aminotransferase 219(H) <35 U/L 06/04/2022 8:46 AM [facility] Glucose 81 74 - 100 mg/dL 06/04/2022 8:46 AM [facility] Blood Urea nitrogen 12 7 - 17 mg/dL 06/04/2022 8:46 AM [facility] Creatinine 0.54 0.52 - 1.04 mg/dL 06/04/2022 8:46 AM [facility] Protein, Total 7.5 6.3 - 8.2 g/dL 06/04/2022 8:46 AM [facility] Albumin 4.9 3.5 - 5.0 g/dL 06/04/2022 8:46 AM [facility] Bilirubin, Total 0.5 0.2 - 1.3 mg/dL 06/04/2022 8:46 AM [facility] Globulin 2.6 1.4 - 4.8 g/dL 06/04/2022 8:46 AM [facility] Anion Gap 12 5 - 15 mmol/L 06/04/2022 8:46 AM [facility] Glomerular Filtration Rate >60 >60 mL/min/1. 73 m*2 06/04/2022 8:46 AM [facility] Comment:This calculation use s CKD-EPI 2020 equation; it has not been validated in women. Blood BLOOD SPECIMEN / Unknown Venipuncture / Unknown 06/03/2022 3:48 PM CDT 06/03/2022 3:48 PM T Licha Marc MATTRESS STRIPPER EC CHEMISTRY ORDER TY [facility] [address] [phone] documented in this encounter Visit Diagnoses Diagnosis Gastroesophageal reflux disease without esophagitis- Primary Esophageal reflux Generalized abdominal pain Abdominal pain, generalized documented in this encounter Historical Medications * This list may reflect changes made after this encounter. Medication Sig Dispensed Refills Start Date End Date Calcium Polycarbophil (FIBER-CAPS OR) Take by mouth. 0 Lactobacillus (PROBIOTIC ACIDOPHILUS OR) Take by mouth. 0 added in this encounter Care Teams Ichthyologist Relationship Specialty Start Date End Date Elsewhere, Pcp PCP - General 05/21/22 06/12/22 documented as of this encounter
[2023-03-10 08:35] LABS: Vitamin D 25 Hydroxy* 31 ng/mL (30-80)
[2023-03-10 09:06] LABS: Hepatitis C Virus Antibody* Negative (Negative)
[2023-03-10 15:22] LABS: Hepatitis B Surface Antigen* Negative (Negative)
[2023-03-10 23:42] LABS: Rubella Antibody IgG 74.7 IU/mL
[2023-03-11 09:35] LABS: DHEAS 152 ug/dL (99-340)
[2023-03-11 11:35] LABS: Prolactin 9.4 ng/mL (2.8-29.2)
[2023-03-11 14:48] LABS: HIV Serologic Interpretation HIV Abs Neg; HIV-1 Antibody Negative (Negative); HIV-2 Antibody Negative (Negative)
[2023-03-12 04:49] LABS: HIV-1 Qnt NAAT copies/mL Not Detected log cpy/mL
== END 2023-03-09 10:05 | disposition home or self-care (01) ==
LOC: NPINS 10:04
DX: N97.0 Female infertility associated with anovulation (principal)
CPT/HCPCS: 82306; 82627; 84146; 85018; 86701; 86702; 86706; 86762; 86787; 86803; 86850; 86900; 86901; 87340; 87536

== ENCOUNTER 2023-03-17 06:06 | Day surgery (SDC) | payer BC, SELFPAY ==
--- OUTSIDE RECORDS SUMMARY | 2023-03-17 06:07 | XMS_ITS | Clinical Summary ---
Author Name Unknown Organization [facility] [employer] [facility] Address [address] [address] Phone Care Team Providers Care Papier Mache Molder Name Role Phone Licha Marc Connie [employer] Primary Care Provider [phone]- [phone] Allergies Active Allergy Reactions Criticality Noted Date [...] up with patient after US tomorrow. Spot, [id number] 05/05/2018 Immunizations Name Administration Dates Next Due [...] age to complete this topic Care Teams Papier Mache Molder Relationship Specialty Start Date End Date Licha Marc, DISASTER DIRECTOR [address] [place] [address] PCP - General Family Medicine 09/23/22
--- OUTSIDE RECORDS SUMMARY | 2023-03-17 06:07 | XMS_ITS | Encounter Summary ---
Author Name Unknown Organization [employer] [facility] Address [address] [address] Phone Care Team Providers Care Gear Technician Name Role Phone Licha Marc CNP Primary Care Provider [phone]- [phone] Encounter Details Date Type Department Care Team [...] on filedocumented in this encounter Care Teams Gear Technician Relationship Specialty Start Date End Date [place] [address] PCP - General Family Medicine 09/23/22 documented as of this encounter
--- OUTSIDE RECORDS SUMMARY | 2023-03-17 06:07 | XMS_ITS | Encounter Summary ---
Author Name Unknown Organization [facility] [employer] [facility] Address [address] [address] Phone Care Team Providers Care Grievance And Appeals Coordinator Name Role Phone Monico Licha Connie RUCKER Primary Care Provider [phone]- [phone] Reason for Visit * Reason Comments Lab Work Encounter Details Date Type Department Care Team (Late st Contact Info) Description 09/23/2022 9:45 AM CDT ALLIED HEALTH/NURSE VISIT [facility] [address] [place] [id number] Lab, [facility] Laboratory [address] [place] [address] Lab Work Social History Tobacco Use Types [...] - 126 U/L 09/23/2022 3:48 PM CDT [facility] Aspartate Aminotransferase 30 14 - 36 U/L 09/23/2022 3:48 PM CDT [facility] Alanine Aminotransferase 23 <35 U/L 09/23/2022 3:48 PM CDT [facility] Protein, Total 7.3 6.3 - 8.2 g/dL 09/23/2022 3:48 PM CDT [facility] Albumin 4.9 3.5 - 5.0 g/dL 09/23/2022 3:48 PM CDT [facility] Bilirubin, Total 0.5 0.2 - 1.3 mg/dL 09/23/2022 3:48 PM T [facility] Bilirubin, Direct 0.00 <=0.30 mg/dL 09/23/2022 3:48 PM T [facility] Bilirubin, Indirect 0.38 <=1.10 mg/dL 09/23/2022 3:48 PM T [facility] Blood BLOOD SPECIMEN / Unknown Venipuncture / Unknown 09/23/2022 9:37 AM CDT 09/23/2022 9:37 AM CDT Licha Marc CNP EC CHEMISTRY ORDER TY [facility] [address] [place], [place] [id number] [place] [address] documented in this encounter Visit Diagnoses Diagnosis Elevated LFTs Other abnormal blood chemistry documented in this encounter Care Teams Grievance And Appeals Coordinator Relationship Specialty Start Date End Date Licha Marc CNP [address] [place], [place] [id number] [place] [address] PCP - General Family Medicine 09/23/22 documented as of this encounter
--- OUTSIDE RECORDS SUMMARY | 2023-03-17 06:07 | XMS_ITS | Clinical Summary ---
Author Name Unknown Organization [employer] [facility] Address [place], [place] [address] Care Team Providers Care Social Media Editor Name Role Phone Pcp, No Primary Care [...] Comments Blood Pressure 120/66 03/13/2020 2:10 PM LACQUER PIN PRESS OPERATOR Pulse 81 04/05/2019 8:32 AM LACQUER PIN PRESS OPERATOR Temperature - - Respiratory Rate - - Oxygen Saturation 99% 04/05/2019 8:32 AM LACQUER PIN PRESS OPERATOR Inhaled Oxygen Concentration - - Weight 77.4 kg (170 lb 9.6 oz) 03/13/2020 2:10 P M LACQUER PIN PRESS OPERATOR Height 156 cm (5' 1.42) 03/13/2020 2:10 PM LACQUER PIN PRESS OPERATOR Body Mass Index 31.8 03/13/2020 2:10 PM LACQUER PIN PRESS OPERATOR Plan of Treatment Health Maintenance Due Date [...] age to complete this topic Care Teams Social Media Editor Relationship Specialty Start Date End Date Pcp, No . PCP - General 03/16/16
--- OUTSIDE RECORDS SUMMARY | 2023-03-17 06:08 | XMS_ITS | Encounter Summary ---
Author Name Unknown Organization [facility] Address [address] [address] Phone Care Team Providers Care Garde Manger Name Role Phone Elsewhere, Pcp Primary Care [...] on filedocumented in this encounter Care Teams Garde Manger Relationship Specialty Start Date End Date Elsewhere, Pcp PCP - General 05/21/22 06/12/22 documented as of this encounter
--- OUTSIDE RECORDS SUMMARY | 2023-03-17 06:08 | XMS_ITS | Encounter Summary ---
Author Name Unknown Organization [facility] [employer] [facility] Address [address] [address] Phone Care Team Providers Care Tissue Coordinator Name Role Phone Elsewhere, Pcp Primary Care [...] on filedocumented in this encounter Care Teams Tissue Coordinator Relationship Specialty Start Date End Date Elsewhere, Pcp PCP - General 05/21/22 06/12/22 documented as of this encounter
--- OUTSIDE RECORDS SUMMARY | 2023-03-17 06:08 | XMS_ITS | Encounter Summary ---
Author Name Unknown Organization [employer] [facility] Address [address] [address] Phone Care Team Providers Care Seaman Officer Name Role Phone Elsewhere, Pcp Primary Care Provider Unavailabl e Reason for Visit * Reason Comments Diarrhea Encounter Details Date Type Department Care Team (Late st Contact Info) Description 05/21/2022 8:35 AM CDT Office Visit [facility] [address] [place] [address] Nany Erwin, CONTAINER CRANE OPERATOR, [employer] [address] [place], [place] [id number] Diarrhea, unspecified type (Primary Dx); Gastroenteritis Social [...] sent through Care Everywhere. * Viral Gastroenteritis (Kiswahili) documented in this encounter Ordered Prescriptions Prescription [...] colitis documented in this encounter Care Teams Seaman Officer Relationship Specialty Start Date End Date Elsewhere, Pcp PCP - General 05/21/22 06/12/22 documented as of this encounter
--- OUTSIDE RECORDS SUMMARY | 2023-03-17 06:08 | XMS_ITS | Encounter Summary ---
Author Name Unknown Organization [facility] [employer] [facility] Address [address] [address] Phone Care Team Providers Care Marketing Copywriter Name Role Phone Unavailable Primary Care Provider [...]
--- OUTSIDE RECORDS SUMMARY | 2023-03-17 06:08 | XMS_ITS | Encounter Summary ---
Author Name Unknown Organization [employer] [facility] Address [address] [address] Phone Care Team Providers Care Collection Systems Technician Name Role Phone Elsewhere, Pcp Primary Care Provider Unavailabl e Reason for Visit * Reason Comments Establish Care Abdominal Pain Encounter Details Date Type Department Care Team (Latest Contact Info) Description 06/03/2022 3:00 PM CDT Office Visit [facility] [address] [place] [address] Licha Marc, DAY HAUL OR FARM CHARTER BUS DRIVER [address] [place], [place] [phone] Gastroesophageal reflux disease without esophagitis (Primary Dx); [...] to be scheduled at any of the [facility] facilities, for your convenience and to offer you the best service, we ask that you contact the [facility] directly at [phone]. If you have an Ultrasound or DEXA order from [facility], those are performed directly by them. Please call [phone] ([place]) or [phone] ([place]) to schedule those tests. documented in this [...] 135 - 144 mmol/L 06/04/2022 8:46 AM [facility] Potassium 4.6 3.4 - 5.1 mmol/L 06/04/2022 8:46 AM [facility] Chloride 100 98 - 107 mmol/L 06/04/2022 8:46 AM [facility] Carbon Dioxide 27 22 - 30 mmol/L 06/04/2022 8:46 AM [facility] Calcium 9.7 8.6 - 10.3 mg/dL 06/04/2022 8:46 AM [facility] Alkaline Phosphatase 118 38 - 126 U/L 06/04/2022 8:46 AM [facility] Aspartate Aminotransferase 42(H) 14 - 36 U/L 06/04/2022 8:46 AM [facility] Alanine Aminotransferase 219(H) <35 U/L 06/04/2022 8:46 AM [facility] Glucose 81 74 - 100 mg/dL 06/04/2022 8:46 AM [facility] Blood Urea nitrogen 12 7 - 17 mg/dL 06/04/2022 8:46 AM [facility] Creatinine 0.54 0.52 - 1.04 mg/dL 06/04/2022 8:46 AM [facility] Protein, Total 7.5 6.3 - 8.2 g/dL 06/04/2022 8:46 AM [facility] Albumin 4.9 3.5 - 5.0 g/dL 06/04/2022 8:46 AM [facility] Bilirubin, Total 0.5 0.2 - 1.3 mg/dL 06/04/2022 8:46 AM [facility] Globulin 2.6 1.4 - 4.8 g/dL 06/04/2022 8:46 AM [facility] Anion Gap 12 5 - 15 mmol/L 06/04/2022 8:46 AM [facility] Glomerular Filtration Rate >60 >60 mL/min/1. 73 m*2 06/04/2022 8:46 AM [facility] Comment:This calculation use s CKD-EPI 2020 equation; it has not been validated in women. Blood BLOOD SPECIMEN / Unknown Venipuncture / Unknown 06/03/2022 3:48 PM CDT 06/03/2022 3:48 PM T Licha Marc DAY HAUL OR FARM CHARTER BUS DRIVER EC CHEMISTRY ORDER TY [facility] [address] [phone] documented in this encounter Visit Diagnoses Diagnosis [...] 0 added in this encounter Care Teams Collection Systems Technician Relationship Specialty Start Date End Date Elsewhere, Pcp PCP - General 05/21/22 06/12/22 documented as of this encounter
--- OUTSIDE RECORDS SUMMARY | 2023-03-17 06:08 | XMS_ITS | Encounter Summary ---
Author Name Unknown Organization [facility] [employer] [facility] Address [address] [address] Phone Care Team Providers Care Manager Strategic Development Name Role Phone Unavailable Primary Care Provider Unavailabl e Reason for Referral * Office Visit (Routine) - Authorized Specialty Diagnoses / Procedures Referred By Contac t Referred To Contact Gastroenterology Diagnoses Diarrhea, unspecified type Licha Marc CNP [address] [place] [address] [place] [address] Referral ID Status Reason Start Date Expiration Date V isits Requested Visits Authorized [id number] Authorized 06/29/2022 06/29/2023 1 1 Comments Appt [...] Description 06/29/2022 10:00 AM CDT Office Visit [facility] [address] [place] [address] Licha Marc CNP [address] [address] Diarrhea, unspecified type (Primary Dx); Fever, unspecified [...] to be scheduled at any of the [facility] facilities, for your convenience and to offer you the best service, we ask that you contact the [facility] directly at [phone]. If you have an Ultrasound or DEXA order from [facility], those are performed directly by them. Please call [phone] ([place]) or [phone] ([place]) to schedule those tests. documented in this [...] ACID TESTING (06/30/2022 8:11 AM CDT) Pathologist [facility] Campylobacter Species Not Detected Not Detected 06/30/2022 4:36 PM CDT [facility] Clostridium difficile Toxin A/B Not Detected Not Detected 06/30/2022 4:36 PM CDT [facility] Plesiomonas shigelloides Not Detected Not Detected 06/30/2022 4:36 PM CDT [facility] Salmonella species Not Detected Not Detected 06/30/2022 4:36 PM CDT [facility] Vibrio species Not Detected Not Detected 06/30/2022 4:36 PM CDT [facility] Vibrio cholerae Not Detected Not Detected 06/30/2022 4:36 PM [facility] Yersinia enterocolitica Not Detected Not Detected 06/30/2022 4:36 PM [facility] Enteroaggregative E. coli (EAEC) Not Detected Not Detected 06/30/2022 4:36 PM CDT [facility] Enteropathogenic E. coli (EPEC) Not Detected Not Detected 06/30/2022 4:36 PM [facility] Enterotoxigenic E. coli (ETEC) Not Detected Not Detected 06/30/2022 4:36 PM [facility] Shiga-like Toxin producing E. coli (STEC) Not Detected Not Detected 06/30/2022 4:36 PM [facility] Shigella/Enteroinvas meng E. coli (EIEC) Not Detected Not Detected 06/30/2022 4:36 PM CDT [facility] Cryptosporidium species Not Detected Not Detected 06/30/2022 4:36 PM CDT [facility] Cyclospora cayetanensis Not Detected Not Detected 06/30/2022 4:36 PM [facility] Entamoeba histolytica Not Detected Not Detected 06/30/2022 4:36 PM CDT [facility] Giardia lamblia Not Detected Not Detected 06/30/2022 4:36 PM [facility] Adenovirus F40/41 Not Detected Not Detected 06/30/2022 4:36 PM CDT [facility] Astrovirus Detected(A) Not Detected 06/30/2022 4:36 PM CDT [facility] Norovirus GI/GII Not Detected Not Detected 06/30/2022 4:36 PM CDT [facility] Rotavirus A Not Detected Not Detected 06/30/2022 4:36 PM CDT [facility] Sapovirus Not Detected Not Detected 06/30/2022 4:36 PM CDT [facility] Stool FECES / Unknown Non-blood collection / Unknown 06/30/2022 8:11 AM CDT 06/30/2022 8:11 AM CDT Licha Marc AUTO MOTOR MECHANIC EC MICROBIOLOGY - GENERAL ORDERABLES [facility] [address] [phone] * (ABNORMAL) HEMOGRAM/DIFFERENTIAL (06/29/2022 10:14 AM CDT) WBC 6.2 4.0 - 11.0 X10*3u/L 06/29/2022 10:24 AM CDT [facility] RBC 4.58 3.80 - 5.20 X10*6/uL 06/29/2022 10:24 AM CDT [facility] HGB 13.5 12.0 - 16.0 g/dl 06/29/2022 10:24 AM CDT [facility] HCT 37.8 35.0 - 47.0 % 06/29/2022 10:24 AM CDT [facility] MCV 82.5 80 - 98 fL 06/29/2022 10:24 AM CDT [facility] MCH 29.5 27.0 - 34.0 pg 06/29/2022 10:24 AM CDT [facility] MCHC 35.7 32 - 36 g/dl 06/29/2022 10:24 AM CDT [facility] PLT 426(H) 150 - 420 X10*3/uL 06/29/2022 10:24 AM CDT [facility] Neutrophils Absolute 4.19 2.10 - 7.50 x10*3u/L 06/29/2022 10:24 AM CDT [facility] Lymphocytes Absolute 1.41 0.76 - 4.00 x10*3u/L 06/29/2022 10:24 AM CDT [facility] Monocytes Absolute 0.55 0.00 - 0.90 x10*3u/L 06/29/2022 10:24 AM T [facility] Eosinophils Absolute 0.03(L) 0.04 - 0.54 x10*3u/L 06/29/2022 10:24 AM T [facility] Basophils Absolute 0.04 0.00 - 0.20 x10*3u/L 06/29/2022 10:24 AM T [facility] RDW-CV 12.7 11.6 - 14.4 % 06/29/2022 10:24 AM T [facility] RDW-SD 37.9 36.5 - 46.3 fL 06/29/2022 10:24 AM [facility] Blood BLOOD SPECIMEN / Unknown Venipuncture / Unknown 06/29/2022 10:14 AM CDT 06/29/2022 10:14 AM CDT Licha Marc [facility] H[facility] SHIKHA CARO [facility] Organization Address City/State/[facility] Co de Phone Number [phone] [place] [address] documented in this encounter Visit Diagnoses Diagnosis Diarrhea, unspecified type- Primary Fever, unspecified fever cause documented in this encounter
--- OUTSIDE RECORDS SUMMARY | 2023-03-17 06:08 | XMS_ITS | Encounter Summary ---
Author Name Unknown Organization [facility] [employer] [facility] Address [address] [address] Phone Care Team Providers Care Internet Sales Associate Name Role Phone Unavailable Primary Care Provider Unavailabl e Reason for Visit * Reason Comments Lab Work Encounter Details Date Type Department Care Team (Late st Contact Info) Description 06/30/2022 8:15 AM CDT ALLIED HEALTH/NURSE VISIT [facility] [address] [place] [address] Lab, Rbpl Laboratory [address] [place] [address] Lab Work Social History Tobacco Use Types [...] Detected Not Detected 06/30/2022 4:36 PM CDT [facility] Clostridium difficile Toxin A/B Not Detected Not Detected 06/30/2022 4:36 PM [facility] Plesiomonas shigelloides Not Detected Not Detected 06/30/2022 4:36 PM CDT [facility] Salmonella species Not Detected Not Detected 06/30/2022 4:36 PM [facility] Vibrio species Not Detected Not Detected 06/30/2022 4:36 PM [facility] Vibrio cholerae Not Detected Not Detected 06/30/2022 4:36 PM [facility] Yersinia enterocolitica Not Detected Not Detected 06/30/2022 4:36 PM [facility] Enteroaggregative E. coli (EAEC) Not Detected Not Detected 06/30/2022 4:36 PM [facility] Enteropathogenic E. coli (EPEC) Not Detected Not Detected 06/30/2022 4:36 PM [facility] Enterotoxigenic E. coli (ETEC) Not Detected Not Detected 06/30/2022 4:36 PM [facility] Shiga-like Toxin producing E. coli (STEC) Not Detected Not Detected 06/30/2022 4:36 PM [facility] Shigella/Enteroinvas meng E. coli (EIEC) Not Detected Not Detected 06/30/2022 4:36 PM [facility] Cryptosporidium species Not Detected Not Detected 06/30/2022 4:36 PM [facility] Cyclospora cayetanensis Not Detected Not Detected 06/30/2022 4:36 PM [facility] Entamoeba histolytica Not Detected Not Detected 06/30/2022 4:36 PM CDT [facility] Giardia lamblia Not Detected Not Detected 06/30/2022 4:36 PM CDT [facility] Adenovirus F40/41 Not Detected Not Detected 06/30/2022 4:36 PM CDT [facility] Astrovirus Detected(A) Not Detected 06/30/2022 4:36 PM CDT [facility] Norovirus GI/GII Not Detected Not Detected 06/30/2022 4:36 PM CDT [facility] Rotavirus A Not Detected Not Detected 06/30/2022 4:36 PM CDT [facility] Sapovirus Not Detected Not Detected 06/30/2022 4:36 PM CDT [facility] Stool FECES / Unknown Non-blood collection / Unknown 06/30/2022 8:11 AM CDT 06/30/2022 8:11 AM CDT Licha Marc MEASURER MACHINE EC MICROBIOLOGY - GENERAL ORDERABLES Performing Organization Address City/State/[facility] Co de Phone Number [facility] [address] [phone] documented in this encounter Visit Diagnoses Diagnosis Diarrhea, unspecified type Fever, unspecified fever cause documented in this encounter Additional Health Concerns Infection Onset Date Last Indicated Resolved Time R/O Enteric Pathogens 06/30/2022 06/30/20222022 4:36 PM CDT documented as of this encounter
--- OUTSIDE RECORDS SUMMARY | 2023-03-17 06:08 | XMS_ITS | Encounter Summary ---
Author Name Unknown Organization [employer] Address [address] [address] Phone Care Team Providers Care Brass Molder Helper Name Role Phone Unavailable Primary Care Provider Unavailabl e Encounter Details Date Type Department Care Team (Latest Contact Info) Description 06/13/2022 8:30 AM CDT Ancillary Procedure [facility] ULTRASOUND [address] [place] [id number] Licha Marc, CADDIE SUPERVISOR [address] [place] [address] Generalized abdominal pain Social History Tobacco Use [...] Report Date: 06/14/2022 7:24 AM Licha Marc CADDIE SUPERVISOR EC US ORDERABLES documented in this encounter Visit Diagnoses Diagnosis Generalized abdominal pain Abdominal pain, generalized documented in this encounter
--- OUTSIDE RECORDS SUMMARY | 2023-03-17 06:08 | XMS_ITS | Encounter Summary ---
Author Name Unknown Organization [facility] [employer] [facility] Address [address] [address] Phone Care Team Providers Care General Manager Farm Name Role Phone Elsewhere, Pcp Primary Care [...] on filedocumented in this encounter Care Teams General Manager Farm Relationship Specialty Start Date End Date Elsewhere, Pcp PCP - General 05/21/22 06/12/22 documented as of this encounter
[2023-03-17] MEDS: LACTATED RINGERS 1000 ML 1,000 ML 100 ML IV (06:30)
[2023-03-17] MEDS: SODIUM CHLORIDE 0.9 % (FLUSH) 10 ML SYRINGE IVF (06:30)
[2023-03-17 06:32] VITALS: BP 147/89; PULSE 107; RESP 16; TEMP 36.6; O2SAT 97; BMI 31.7
--- NOTE | 2023-03-17 06:52 | W.PM.H&PU ---
History & Physical Update History & Physical Update H&P Reviewed and patient assessed: No changes noted H&P Updates: Padma is feeling well and ready for the procedure. No interval changes to her history since pre-operative clearance visit. LMP: 03/05/23 Last intercourse: A week ago. Contraception: Condom use 100% of the time UPT: Negative
[2023-03-17 06:59] LABS: Ur HCG Qualitative* Negative (Negative)
[2023-03-17 07:09] LABS: Creatinine* 0.6 mg/dL (0.5-1.5); Estimated Glomerular Filt Rate 121 ml/min
--- NOTE | 2023-03-17 07:29 | W.PM.GYNPROC ---
Procedure Note Time Seen by Provider: 07:29 Date of procedure: 03/17/23 Pathology: specimen obtained, sent to pathology Condition: stable Disposition: same day Procedure Description: Preoperative diagnosis: Padma is a 32 year-old G0 with primary infertility and submucosal uterine fibroid. Postoperative diagnosis: Same Procedure: Hysteroscopy, Dilation and Curettage, and myomectomy using the Truclear incisor Anesthesia: Conscious sedation, paracervical block. Surgeon: Goldie Baez MD Front End Developer Javascript Html Css: None Estimated blood loss: <5 mL UOP: 135 mL IVF: 600 mL Specimen: Endometrial curettings/uterine fibroid to pathology. Findings: Exam under anesthesia: Uterus: anteverted position, less than 6 week sized, mobile, with no masses or nodularity palpable. Uterus sounded to 7 cm. No adnexal masses or nodularity palpable. On hysteroscopy: Normal bilateral tubal ostia, 1 cm submucosal fibroid on the posterior wall of the uterus near the internal os. Procedure: Padma was taken to the operating operating room more conscious sedation was found to be adequate. The patient was placed on in the dorsal lithotomy position and an exam under anesthesia was performed with findings stated above. She was then prepped and draped in a normal sterile manner. A bivalve speculum was placed in the vagina. The cervix appears nulliparous. Otherwise no abnormalities. The paracervical block was placed using 1% lidocaine with epinephrine, 5 mL was injected at the 4 and 8 o'clock positions on the cervix. The anterior lip of the cervix was grasped with a tenaculum clamp. The cervix dilated to Hegar 6. The uterus sounded to 6 cm. The Truclear hysteroscope was advanced into the uterus. A diagnostic hysteroscopy was performed with normal saline as the insufflation medium. Findings are stated above. The Truclear incisor was then advanced through the camera. The myomectomy and global curettage was performed with the incisor. The incisor was then removed. The endometrial cavity appeared normal. Saline deficit at the end of the procedure 285 mL. The hysteroscope, tenaculum clamp and speculum were removed from the vaginal canal. Excellent hemostasis was noted. The patient tolerated the procedure well. Sponge, lap and instrument counts were correct x2 at the end of the procedure. The patient was taken to the recovery area in stable condition.
--- NOTE | 2023-03-17 08:11 | W.ANESCHARGE ---
Anesthesia Charges Start Date/Time Anesthesia Start Date: 03/17/23 Anesthesia Start Time: 07:18 Stop Date/Time Anesthesia Stop Date: 03/17/23 Anesthesia Stop Time: 08:13
[2023-03-17 08:13] VITALS: BP 100/69; PULSE 107; RESP 16; TEMP 36.6; O2SAT 97
--- NOTE | 2023-03-17 08:14 | W.ANESCHARGE ---
Anesthesia Charges Start Date/Time Anesthesia Start Date: 03/17/23 Anesthesia Start Time: 07:18 Stop Date/Time Anesthesia Stop Date: 03/17/23 Anesthesia Stop Time: 08:13
[2023-03-17 08:30] VITALS: BP 93/70; PULSE 83; RESP 16; O2SAT 99
== END 2023-03-17 09:00 | disposition home or self-care (01) ==
LOC: OR 06:06
PROVIDERS: PCP Internal Medicine; Visit Provider Obstetrics & Gynecology
PROC: 0UDB8ZZ Extraction of Endometrium, Via Natural or Artificial Opening Endoscopic (ICD-10-PCS; CPT 58558; principal; 2023-03-17 07:15)
DX: D25.0 Submucous leiomyoma of uterus (principal); N97.8 Female infertility of other origin
CPT/HCPCS: 58558; 58561; 00952; 36415; 81025; 82565; 85018; 86850; 86900; 86901; 88305; J1100; J1885; J2250; J2405; J2704; J3010; J7120

== ENCOUNTER 2023-07-13 06:07 | Day surgery (SDC) | payer BC, SELFPAY ==
--- OUTSIDE RECORDS SUMMARY | 2023-07-13 06:10 | XMS_ITS | Clinical Summary ---
Author Organization [employer] [facility] Address [place], [place] [address] Care Team Providers Care Gopherman Name Role Phone Pcp, No Primary Care [...] Comments Blood Pressure 120/66 03/13/2020 2:10 PM DOUGH CATCHER Pulse 81 04/05/2019 8:32 AM DOUGH CATCHER Temperature - - Respiratory Rate - - Oxygen Saturation 99% 04/05/2019 8:32 AM DOUGH CATCHER Inhaled Oxygen Concentration - - Weight 77.4 kg (170 lb 9.6 oz) 03/13/2020 2:10 P M DOUGH CATCHER Height 156 cm (5' 1.42) 03/13/2020 2:10 PM DOUGH CATCHER Body Mass Index 31.8 03/13/2020 2:10 PM DOUGH CATCHER Plan of Treatment Health Maintenance Due Date Last Done Comments HIV for age 15-65 11/28/2003 Hepatitis C screening for age 18-79 2006 BMI (ht and wt on same day) for age 18+ 03/13/2021 03/13/2020, 04/05/2019, 03/30/2018, Additional history exists Depression screening for age 12+ 03/13/2021 03/13/2020, 04/05/2019, 03/30/2018, Additional history exists COVID-19 vaccine series (2022- season) 2022 Influenza for age 9-49 10/17/2023 12/11/2019 Pap test for age 21-65 04/05/2024 0, 04/05/2019, 03/16/2016, Additional history exists Tetanus booster 05/25/2024 05/25/2014, 02/15/2009 Tdap Completed 05/25/2014, 02/15/2009 Pneumococcal series for age 6-64 Aged Out No longer eligible based on patient's age to complete this topic Procedures Procedure Name Priority Date/Time Associated Diagnosis Comments MEDTRONICS TECHNICIAN THIN PREP PAP SCREEN IMAGED Routine 04/05/2019 8:53 AM DOUGH CATCHER Cervical cancer screening from Last 3 Months or Most Recently Relevant to Health Maintenance Results * MEDTRONICS TECHNICIAN THIN PREP PAP SCREEN IMAGED (04/05/2019 8:53 AM DOUGH CATCHER) Case Report Gynecologic Cytology Report ? Case: [id number] ? Authorizing Provider: ??Fariha Mahajan, CERTIFIED DETENTION DEPUTY ?Collected: ? 04/05/2019 0853 ? Ordering Location: ? [facility] Received: ?04/05/2019 0950 ? First Screen: ?Pradeep Gaines ? Specimen: ?MEDTRONICS TECHNICIAN ThinPrep Vial Screening, Cervical ? 04/14/2019 3:45 PM DOUGH CATCHER [facility] [employer] [facility] INTERPRETATION/ RESULT NEGATIVE FOR INTRAEPITHELIAL LESION OR MALIGNANCY (NIL) (none) 04/14/2019 3:45 PM DOUGH CATCHER [facility] [employer] [facility] IMEN ADEQUACY Satisfactory for evaluation No endocervical component seen Scant cellularity 04/14/2019 3:45 PM DOUGH CATCHER [facility] [employer] [facility] HPV REQUEST HPV and PAP 04/14/2019 3:45 PM DOUGH CATCHER [facility] [employer] [facility] Date of LMP Unknown 04/14/2019 3:45 PM DOUGH CATCHER [facility] Last Pap Date 03/16/16 04/14/2019 3:45 PM DOUGH CATCHER [facility] [employer] [facility] Last Pap Result NIL 0 3:45 PM DOUGH CATCHER [facility] [employer] [facility] Abnormal Pap or [place] Bx in last 5 years No 04/14/2019 3:45 PM DOUGH CATCHER [facility] [employer] [facility] Menstrual Status Regular Periods 04/14/2019 3:45 PM DOUGH CATCHER [facility] [employer] [facility] [place] Bx Done Today No 04/14/2019 3:45 PM DOUGH CATCHER [facility] Additional Information None given 04/14/2019 3:45 PM DOUGH CATCHER [facility] Comment: Cytology is screened at [facility] - [address], [place] [address] and [facility] - [address], [place] [address] and [facility] - [address] [place] [address] Interpreted at [facility] - [address], [place] [address] Automated Review Successful 04/14/2019 3:45 PM DOUGH CATCHER [facility] Comment:Specimen processed s uccessfully by automated tube cutter device, ThinPrep Imaging System, [employer] ANCILLARY TESTING MEDTRONICS TECHNICIAN HPV Ordered, Please see separate report 04/14/2019 3:45 PM DOUGH CATCHER [facility] Note The pap test is a screening technique, not a diagnostic procedure. It is used primarily to screen for squamous cancers and precursor lesions. Published studies have shown that it is subject to both false negative and false positive results. The pap test should not be used as the sole means to diagnose or exclude pre-malignant and malignant lesions. 04/14/2019 3:45 PM DOUGH CATCHER [facility] Other (Cervical) Non-Blood / Unknown 04/05/2019 8:53 AM DOUGH CATCHER 04/05/2019 9:50 AM DOUGH CATCHER Fariha Mahajan NP PATHOLOGY/CYTOLOGY [facility] [address] [place] [address], [place] from Last 3 Months or Most Recently Relevant to Health Maintenance Care Teams Gopherman Relationship Specialty Start Date End Date Pcp, No . PCP - General 03/16/16
--- OUTSIDE RECORDS SUMMARY | 2023-07-13 06:11 | XMS_ITS | Clinical Summary ---
Author Organization [facility] Address [address] [address] Phone Care Team Providers Care Glass Science Engineer Name Role Phone Licha Marc [facility] Primary Care Provider [phone] Allergies Active Allergy Reactions Criticality Noted Date Comments Amoxicillin Hives High 01/07/2021 Medications Medication Sig Dispensed Refills Start Date End Date Status Lactobacillus (PROBIOTIC ACIDOPHILUS OR) Take by mouth. Active Calcium Polycarbophil (FIBER-CAPS OR) Take by mouth. Activ e omeprazole (PriLOSEC) 20 MG delayed-release capsuleIndications:Gas troesophageal reflux disease without esophagitis Take 1 Capsule by mouth one time a day. Take before meals. Do not crush. 30 Capsule 06/03/2022 Active Active Problems Problem Noted Date [...] up with patient after US tomorrow. Spot, [id number] 05/05/2018 Immunizations Name Administration Dates Next Due [...] Health Maintenance Due Date Last Done Comments Last pap w/o HPV Testing 1988 Hepatitis B Vaccine (Standing Order) (1 of 3 - 19+ 3-dose series) 11/28/2007 COVID-19 Vaccine ( season) 2022 01/21/2021, 04/11/2020, [...] age to complete this topic Care Teams Glass Science Engineer Relationship Specialty Start Date End Date Licha Marc, SUPERVISOR SOAKERS [address] [address] PCP - General Family Medicine 09/23/22
[2023-07-13 06:29] VITALS: BMI 31.1
[2023-07-13 06:30] LABS: Hemoglobin* 13.1 gm/dL (12.0-16.0)
[2023-07-13 06:33] VITALS: BP 131/83; PULSE 70; RESP 16; TEMP 36.7; O2SAT 100
[2023-07-13 06:33] LABS: Ur HCG Qualitative* Negative (Negative)
[2023-07-13] MEDS: SODIUM CHLORIDE 0.9 % (FLUSH) 10 ML SYRINGE IVF (06:50)
[2023-07-13] MEDS: LACTATED RINGERS 1000 ML 1,000 ML 100 ML IV (06:50)
--- NOTE | 2023-07-13 07:08 | W.PM.H&PU ---
History & Physical Update History & Physical Update H&P Reviewed and patient assessed: No changes noted H&P Updates: Padma is a 32yo G0 seen in pre-op prior to planned hysteroscopy and myomectomy. Fibroid uterus was noted during ART treatment via sono with [facility]. She is s/p hysteroscopic myomectomy of a different fibroid in February. She is s/p consult with CGM earlier this month. No interval change to H&P with Dr. Gonzalez. We reviewed planned steps of surgery, goal of restoring normal uterine cavity for her continued ART treatments. Risks including bleeding, infection, damage to surrounding structures, perforation, recurrent fibroids and uterine scarring reviewed. Post-op restriction and return precautions reviewed. Written consent re-signed this morning. All questions answered.
[2023-07-13] MEDS: BUPIVACAINE 0.5% 30 ML INJECTION (07:42)
--- NOTE | 2023-07-13 07:47 | W.ANESCHARGE ---
Anesthesia Charges Start Date/Time Anesthesia Start Date: 07/13/23 Anesthesia Start Time: 07:19 Stop Date/Time Anesthesia Stop Date: 07/13/23 Anesthesia Stop Time: 08:10
--- NOTE | 2023-07-13 07:56 | SUR.OPER ---
fluid deficit 100 ml
--- NOTE | 2023-07-13 08:06 | W.PM.GYNPROC ---
Procedure Note Time Seen by Provider: 08:00 Date of procedure: 07/13/23 Will [facility] bill your pro fee for this procedure?: Yes Pre-op diagnosis: Suspected submucosal fibroid Post-op diagnosis: Submucosal fibroid Procedure: Hysteroscopy, myomectomy, dilation and curettage (Truclear) Anesthesia: MAC and local Complications: None Surgeon: Jonathon Sandoval MD Estimated blood loss (mL): 5 IV fluids (mL): 550 Urine Output (mL): 350 Pathology: specimen obtained, sent to pathology Condition: stable Disposition: same day Findings: Small, anteverted uterus Unremarkable visual exam of the external genitals, vagina and cervix Proliferative appearing endometrium Left submucosal fibroid, approximately 1cm in size, altering endometrial cavity and blocking ability to visualize left cornua After resection, unremarkable bilateral tubal ostia visualized Procedure Description: Procedure in detail: Patient was taken to the operating room with IV running. She was positioned in dorsal lithotomy position with her legs fully supported in Yellofin stirrups. Monitored anesthesia care was administered. She was prepped and draped in the usual sterile fashion. Exam under anesthesia was performed for the above-noted findings. In/out catheterization performed with return of 350mL of clear urine. Speculum was inserted. Cervix visualized and grasped along the anterior lip with a single-tooth tenaculum. Paracervical block was performed in the usual fashion with 0.5% bupivicaine, 20mL total. Uterine sound could be easily passed, sounding length of 8cm. Cervix was gently serially dilated to accommodate the TRUCLEAR hysteroscope. The hysteroscope was assembled with saline inflow and outflow in place. The line was flushed of bubbles. The hysteroscope was advanced through the cervix into the endometrial cavity for the above noted findings. The tissue morcellator (soft tissue) was then inserted through the operating channel. Window lock was performed. Under direct visualization, the left-sided fibroid was resected. Tissue appeared white and pearly consistent with fibroid throughout resection. The fibroid was resected until normal underlying myometrium was encountered. Very small volume bleeding was noted, resolved without intervention. There were a few areas of focally thickened likely proliferative endometrium, thus the endometrial cavity was circumferentially curetted with the tissue morcellator. The hysteroscope and morcellator were then removed from the uterus. Tenaculum was removed from the anterior lip of cervix. Excellent hemostasis was noted. Surgical debrief completed. EBL 5mL, UOP 350mL, IVF 550mL, fluid deficit of 100mL. Tissue is endometrial curettings sent for pathologic evaluation. Patient tolerated procedure well. She was taken to recovery area in stable condition.
[2023-07-13 08:09] VITALS: BP 118/80; PULSE 68; RESP 16; TEMP 36.7; O2SAT 94
[2023-07-13 08:15] VITALS: BP 102/87; PULSE 63; RESP 16; O2SAT 99
[2023-07-13 08:30] VITALS: BP 116/86; PULSE 73; RESP 16; O2SAT 99
[2023-07-13] MEDS: ACETAMINOPHEN 500 MG TABLET 1000 MG PO (08:38)
[2023-07-13 08:47] VITALS: BP 118/82; PULSE 69; RESP 16; TEMP 36.4; O2SAT 100
--- NOTE | 2023-07-13 09:42 | W.ANESCHARGE ---
Anesthesia Charges Start Date/Time Anesthesia Start Date: 07/13/23 Anesthesia Start Time: 07:19 Stop Date/Time Anesthesia Stop Date: 07/13/23 Anesthesia Stop Time: 08:10
== END 2023-07-13 09:06 | disposition home or self-care (01) ==
LOC: OR 06:08
PROVIDERS: PCP Internal Medicine; Visit Provider Obstetrics & Gynecology
PROC: 0UDB8ZZ Extraction of Endometrium, Via Natural or Artificial Opening Endoscopic (ICD-10-PCS; CPT 58558; principal; 2023-07-13 07:15)
DX: D25.0 Submucous leiomyoma of uterus (principal)
CPT/HCPCS: 58561; 58558; 00952; 36415; 81025; 85018; 86850; 86900; 86901; 88305; A9270; J0665; J1100; J1885; J2250; J2405; J2704; J3010; J7120

== ENCOUNTER 2024-03-17 08:08 | Outpatient (CLI) | payer BC, SELFPAY ==
[2024-03-20 23:38] LABS: Anti-Mullerian Hormone 1.459 ng/mL (0.176-11.705)
== END 2024-03-17 08:09 | disposition home or self-care (01) ==
LOC: NPINS 08:10
PROVIDERS: PCP Internal Medicine; Visit Provider Obstetrics & Gynecology Reproductive Endocrinology
DX: Z31.41 Encounter for fertility testing (principal)
CPT/HCPCS: 83520

== ENCOUNTER 2024-04-07 09:06 | Outpatient (CLI) | payer BC, SELFPAY ==
[2024-04-10 17:39] LABS: HPV Source Cervical; HPV, High Risk by TMA Not Detected
== END 2024-04-07 09:07 | disposition home or self-care (01) ==
PROVIDERS: PCP Internal Medicine; Visit Provider Obstetrics & Gynecology
DX: Z12.4 Encounter for screening for malignant neoplasm of cervix (principal)
CPT/HCPCS: 87624; 87625; 88141; 88142

== ENCOUNTER 2024-04-21 15:57 | Outpatient (CLI) | payer BC, SELFPAY ==
[2024-04-21 18:42] LABS: Thyroid Stimulating Hormone* 0.938 uIU/mL (0.270-4.20)
[2024-04-21 19:38] LABS: Hepatitis B Surface Antigen* Negative (Negative)
[2024-04-21 19:48] LABS: HIV 1/2/P24 Combo Screen* Negative (Negative)
[2024-04-21 19:55] LABS: Hepatitis C Virus Antibody* Negative (Negative)
[2024-04-23 23:03] LABS: Estradiol Premenol Female 36 pg/mL
[2024-04-24 01:26] LABS: Luteinizing Hormone, Serum 12.6 IU/L
== END 2024-04-21 15:58 | disposition home or self-care (01) ==
LOC: NPINS 15:59
PROVIDERS: PCP Internal Medicine; Visit Provider Obstetrics & Gynecology Reproductive Endocrinology
DX: Z11.59 Encounter for screening for other viral diseases (principal); Z31.41 Encounter for fertility testing; Z13.29 Encounter for screening for other suspected endocrine disorder
CPT/HCPCS: 82670; 83001; 83002; 84443; 86701; 86702; 86703; 86803; 87340

== ENCOUNTER 2024-06-16 07:14 | Outpatient (CLI) | payer BC, SELFPAY ==
--- NOTE | 2024-06-16 07:15 | CRLHL7_ITS ---
For Patients: As a result of the Century Cures Act, medical imaging exams and procedure reports are released immediately into your electronic medical record. You may view this report before your referring provider. If you have questions, please contact your health care provider. OB ULTRASOUND INDICATION: Dating and viability. TECHNIQUE: Real time grayscale imaging of the fetus was performed. Transvaginal. Surgery: June 2023, fibroid removed. LMP: 04/20/2024. BLAISE by LMP: 01/25/2025. GA: 8 w, 1 d. Previous US: Yes, pelvic ultrasound 02/27/2022. CRL: 1.2 cm. 7 w 3 d. BLAISE: 01/30/2025. FHR: 152 BPM. Gestational sac: 2.7 cm. Appears within normal limits. Yolk sac: 3.5 mm. Appears within normal limits. Right ovary: 3.3 x 1.4 x 1.4 cm. Left ovary: 3.2 x 2.0 x 2.1 cm. CL. IMPRESSION: 1. Single living intrauterine measuring 7 weeks 3 days and sonographic due date 01/30/2025. 2. Corpus luteal cyst left ovary measures 1.6 x 1.6 x 1.3 cm. 3. Pedunculated left adnexal fibroid is present which measures 2.0 x 2.1 x 3.4 cm. 4. Intramural fundal fibroid measures 9 x 9 x 9 mm. Additional fundal fibroid measures 2.1 x 1.5 x 1.4 cm. Karan Mercado M.D. Diagnostic Radiologist [email or web address] JUSTIN/victor manuel rush/Dictated by: Karan Mercado MD @ 06/16/2024 10:07:00 AM (Electronically Signed)
== END 2024-06-16 07:15 | disposition home or self-care (01) ==
PROVIDERS: PCP Internal Medicine; Visit Provider Registered Nurse
DX: Z34.91 Encounter for supervision of normal pregnancy, unspecified, first trimester (principal); O34.81 Maternal care for other abnormalities of pelvic organs, first trimester; N83.12 Corpus luteum cyst of left ovary; O34.11 Maternal care for benign tumor of corpus uteri, first trimester; D25.1 Intramural leiomyoma of uterus; Z3A.08 8 weeks gestation of pregnancy
CPT/HCPCS: 76817; 83021; 86592; 86703; 86704; 86706; 86762; 86787; 86803; 86850; 86900; 86901; 87086; 87340; 87491; 87591

== ENCOUNTER 2024-08-30 07:42 | Outpatient (CLI) | payer BC, SELFPAY | END 2024-08-30 07:43 | disposition home or self-care (01) | LOC: US 07:42 | PROVIDERS: PCP Internal Medicine; Visit Provider Obstetrics & Gynecology | DX: O26.892 Other specified pregnancy related conditions, second trimester (principal); D25.9 Leiomyoma of uterus, unspecified; Z82.79 Family history of other congenital malformations, deformations and chromosomal abnormalities; Z3A.18 18 weeks gestation of pregnancy | CPT/HCPCS: 76811 ==

== ENCOUNTER 2024-09-20 08:36 | Outpatient (CLI) | payer BC, SELFPAY | END 2024-09-20 08:37 | disposition home or self-care (01) | LOC: US 08:37 | PROVIDERS: PCP Internal Medicine; Visit Provider Obstetrics & Gynecology | DX: Z36.2 Encounter for other antenatal screening follow-up (principal); O09.522 Supervision of elderly multigravida, second trimester; Z3A.21 21 weeks gestation of pregnancy | CPT/HCPCS: 76816 ==

== ENCOUNTER 2024-10-23 13:56 | Outpatient (CLI) | payer BC, SELFPAY ==
--- NOTE | 2024-10-23 14:00 | CRLHL7_ITS ---
For Patients: As a result of the Century Cures Act, medical imaging exams and procedure reports are released immediately into your electronic medical record. You may view this report before your referring provider. If you have questions, please contact your health care provider. OB ULTRASOUND FOLLOW-UP/LIMITED, 10/23/2024 CLINICAL HISTORY: Marginal CI. COMPARISON: 09/20/2024, 08/30/2024. TECHNIQUE: Real time meyers scale imaging of the fetus was performed. Transabdominal imaging performed. FINDINGS: BLAISE by LMP: 01/25/2025. GA: 26 weeks 4 days. Gestation: Single. Cervix: Not visualized. Positioning: Vertex. Amniotic Fluid: 5.7 cm SDP. Placenta: Technique: TA. Placenta Position: Anterior, fundal, posterior. Dopplers: Heart Rate: 157 bpm. BIOMETRY BPD: 6.5 cm, 26 weeks 1 day. 26% HC: 23.8 cm, 25 weeks 6 days. 8% AC: 21.7 cm, 26 weeks 1 day. 28% FL: 4.7 cm, 25 weeks 5 days. 15% FL/AC Ratio: 21.78% HC/AC Ratio: 1.10. EFW: 876 grams, 1 lb 15 oz. Age by this US: 26 weeks 0 days. BLAISE by this US: 01/29/2025. Percentile by BLAISE: 18% IMPRESSION: 1. Sonographic gestational age 26 weeks 0 days and sonographic due date 01/29/2025. Sonographic age is 4 days behind the clinical age. 2. Estimated weight 18th percentile. Abdominal circumference 28th percentile. Karan Mercado M.D. Diagnostic Radiologist [email or web address] Transcribed: 2:48 pm DW/Dictated by: Karan Mercado MD @ 10/23/2024 2:30:00 PM (Electronically Signed)
== END 2024-10-23 13:57 | disposition home or self-care (01) ==
LOC: US 13:57
PROVIDERS: PCP Internal Medicine; Visit Provider Obstetrics & Gynecology
DX: O43.192 Other malformation of placenta, second trimester (principal); Z3A.26 26 weeks gestation of pregnancy
CPT/HCPCS: 76816

== ENCOUNTER 2024-11-03 08:09 | Outpatient (CLI) | payer BC, SELFPAY | END 2024-11-03 08:10 | disposition home or self-care (01) | LOC: NFLDREF 11-08 11:53 | PROVIDERS: PCP Internal Medicine; Referring Provider Internal Medicine; Visit Provider Obstetrics & Gynecology | DX: Z34.93 Encounter for supervision of normal pregnancy, unspecified, third trimester (principal) | CPT/HCPCS: 86592 ==

== ENCOUNTER 2024-11-10 07:55 | Outpatient (CLI) | payer BC, SELFPAY | END 2024-11-10 07:56 | disposition home or self-care (01) | LOC: NFLDREF 11-13 07:39 | PROVIDERS: PCP Internal Medicine; Referring Provider Internal Medicine; Visit Provider Obstetrics & Gynecology | DX: Z34.93 Encounter for supervision of normal pregnancy, unspecified, third trimester (principal) | CPT/HCPCS: 82951; 82952 ==

== ENCOUNTER 2024-11-17 09:12 | Outpatient (CLI) | payer BC, SELFPAY ==
--- NOTE | 2024-11-17 09:15 | CRLHL7_ITS ---
For Patients: As a result of the Century Cures Act, medical imaging exams and procedure reports are released immediately into your electronic medical record. You may view this report before your referring provider. If you have questions, please contact your health care provider. OB ULTRASOUND LMP: 04/20/2024. BLAISE by LMP: 01/25/2025. GA: 30 w, 1 d. Single. INDICATION: Marginal cord insertion. GDM. TECHNIQUE: Real time grayscale imaging of the fetus was performed. Transabdominal. CERVIX: Not visualized. POSITIONING: Vertex. AMNIOTIC FLUID: 7.6 cm. SDP (N: greater than 2 x 1 cm) PLACENTA: Technique: Transabdominal. PLACENTA POSITION: Anterior. DOPPLER: heart rate: 161 bpm. BIOMETRY: BPD: 7.7 cm. 30 w, 5 d, 56%. HC: 28.0 cm. 30 w, 5 d, 29%. AC: 26.3 cm. 30 w, 3 d, 54%. FL: 5.6 cm. 29 w, 3 d, 17%. FL/AC ratio: 21.24%. HC/AC ratio: 1.06. EFW: 1520g. Weight: 3 lbs., 6 oz. age by this US: 30 w, 2 d. BLAISE by this US: 01/24/2025. Percentile by BLAISE: 37%. IMPRESSION: 1. Sonographic gestational age 30 weeks 2 days and sonographic due date 01/24/2025. Good correlation with dates. Normal interval growth. 2. Estimated weight 37th percentile. Abdominal circumference 54th percentile. Karan Mercado M.D. Diagnostic Radiologist [email or web address] JUSTIN/victor manuel rush/Dictated by: Karan Mercado MD @ 11/17/2024 10:49:00 AM (Electronically Signed)
== END 2024-11-17 09:13 | disposition home or self-care (01) ==
LOC: US 09:13
PROVIDERS: Visit Provider Obstetrics & Gynecology
DX: O43.193 Other malformation of placenta, third trimester (principal); O24.419 Gestational diabetes mellitus in pregnancy, unspecified control; Z3A.30 30 weeks gestation of pregnancy
CPT/HCPCS: 76816

== ENCOUNTER 2024-11-30 11:07 | Outpatient (CLI) | payer BC, SELFPAY ==
[2024-11-30] VITALS (29 sets, daily range): BP systolic 102–118; BP diastolic 60–76; PULSE 73–105; RESP 18; TEMP 36.9; O2SAT 89–100
--- NOTE | 2024-11-30 11:15 | CRLHL7_ITS ---
For Patients: As a result of the Century Cures Act, medical imaging exams and procedure reports are released immediately into your electronic medical record. You may view this report before your referring provider. If you have questions, please contact your health care provider. INDICATION: Potential heart arrhythmia, bradycardia TECHNIQUE: Ultrasound OB pelvis transabdominal. Real-time meyers-scale imaging of the fetus was performed without stress testing. COMPARISON: Ob ultrasound 11/17/2024. FINDINGS: heart rate: Heart rate ranges from 03/16 8 167 beats per minute with possible arrhythmia noted on image 290 position: Cephalic. RICHA: 24.5 centimeters 2/2. motion 2/2 reported. tone 2/2 reported. breathing movements 2/2 reported. IMPRESSION: [place] intrauterine in cephalic presentation. Cardiac activity is present with possible arrhythmia detected with variable heart rate. echocardiogram can be considered for further evaluation. My physical exam score of 8/8 with RICHA of 24.5 centimeters, which is at the upper limits of normal. Dictated by Caity Hawk MD @ 11/30/2024 12:54:17 PM (Electronically Signed)
[2024-11-30] MEDS: BETAMETHASONE SOD PHOS/ACETATE 6 MG/ML ML 12 MG IM (12:26)
--- NOTE | 2024-11-30 12:45 | W.PM.OBTRAN ---
History of Present Illness History of Present Illness History of Present Illness: Padma is a 34yo transferred from clinic at 32w0d GA for suspected arrhythmia. is complicated by GDM A1, AMA, marginal cord insertion, uterine fibroids and family history of tetralogy of Fallot (patient's cousin). Patient was seen for routine OB visit today, where on Doppler the heart rate pattern was noted to be abnormal. We proceeded to an NST, which demonstrated primarily a baseline of 140 beats per minute with moderate variability but intermittently the tracing would be discontinuous and heart rate would be measured at about 75 beats per minute with minimal variability. I performed bedside ultrasound for heart rate pulse wave Doppler, where at times the rate would look regular and be measured at 146 beats per minute. At other times, the heart rate see to demonstrate a coupling pattern and rare regular (the low) heart rate at 102 beats per minute. Patient was transferred to the center for extended monitoring. There, a similar pattern was noted. There would be up to 7 minutes of continuous monitoring with the baseline of 140 beats per minute, moderate variability and several 15 x 15 accelerations seen. Every 1 to 7 minutes the tracing would be discontinuous, and again the heart rate would be suspected to be measured at 70 beats per minute with minimal variability. Again the tracing would be disconnected, but spontaneously recover again. The longus any of these heart rate decelerations occurred was about 90 seconds. Interestingly, Site nurses would comment that they could hear the heart rate decreased but it did not necessarily seem to be as low as 70 beats per minute audibly. Ultrasound was performed, where BPP was found to be 8/8. Regular heart rate checks were performed, where rates 138-167 beats per minute. Incidental finding of mild polyhydramnios noted, MVP of 8.6 cm and RICHA of 24.5 cm. Tech report affirms possible arrhythmia, formal radiology read is pending. Call was made via [employer] hotline to [facility] perinatology for M consult. I explained the clinical scenario to Dr. Curtis, and my concern for arrhythmia. She inquired if any previous maternal testing for arrhythmia had been conducted, which has not to my knowledge/EMR review. We thoroughly reviewed our NST findings and how this is somewhat discrepant from the FHR measured via US. Explained aberrations in FHR power wave doppler. We mutually agreed to proceed with transfer to a higher level of care. We mutually agreed betamethasone would be indicated, though hopefully delivery is unlikely. Dr. Curtis anticipate a period of prolonged monitoring, betamethasone #2 and likely Pediatric Cardiology consult with echocardiogram. Prior Imaging is as follows: - Level 2 08/30: Visualized anatomy is normal, suboptimal views of face/lips, cardiac views, hands. Repeat US with MFM in 3-4 weeks. EFW 239g at 22%, AC 39%. Placenta is fundal/ant/posterior, no previa, marginal cord insertion. MVP 3.8cm. Cx 44mm. - Repeat US with MFM on 09/20: Visualized anatomy is within normal limits. Known marginal cord insertion. EFW 411g at 18%ile, AC 28%. MVP 4.67cm. Placenta fundal/ant/post. Two small fibroids: #1 fundal/anterior (15 x 9 x 15mm) #2 Fundal (20 x 29 x 35mm) - NH&C 10/23: EFW 876g at 18th percentile, AC 28%. heart rate 157. MVP 5.7 cm - NH&C 11/17: EFW 1520g at 37%ile - BPD 56%, HC 29%, AC 54%, FL 17%. Vertex. MVP 7.6 cm. Baby moving naturally: Yes Bleeding: No Contractions: No Leaking fluid: No Meds Home Medications and Allergies Home Medications ?Medication ?Instructions ?Recorded ?Confirmed ?Type cholecalciferol (vitamin D3) 50 50 mcg PO QDAY 06/23/23 11/30/24 History mcg (2,000 unit) capsule docosahexaenoic acid 200 mg mg PO DAILY 06/23/23 11/30/24 History capsule ( DHA) lactobacillus combination no.4 3 3,000 mmu cells PO QDAY 06/23/23 11/30/24 History billion cell capsule (Probiotic) magnesium carb,citrate,oxide mg PO 06/16/24 11/30/24 History psyllium husk 0.4 gram capsule 0.4 g PO ONCE 06/16/24 11/30/24 History (Daily Fiber) aspirin 81 mg chewable tablet 81 mg PO QDAY 10/11/24 11/30/24 History Blood Glucose Meter #1 ea 11/10/24 11/30/24 Rx Test Strips #100 ea 11/10/24 11/30/24 Rx lancets #100 ea 11/10/24 11/30/24 Rx sennosides 8.6 mg tablet (senna) 17.2 mg PO BID 11/30/24 11/30/24 History Allergies Allergy/AdvReac Type Severity Reaction Status Date / Time amoxicillin Allergy Mild Verified 11/30/24 12:03 [facility] Medical History (Updated 11/30/24 @ 12:59 by Monika Sandoval MD) Female infertility, primary ?N97.9 - Female infertility, unspecified (ICD-10) Anxiety ?F41.9 - Anxiety disorder, unspecified (ICD-10) Surgical History (Updated 06/16/24 @ 09:16 by Jennifer Ching CNP) H/O myomectomy ?Z98.890 - Other specified postprocedural states (ICD-10) History of hysteroscopy ?Z98.890 - Other specified postprocedural states (ICD-10) Family History Aunt Breast cancer Paternal Grandfather Colon cancer Sister GIST (gastrointestinal stromal tumor), malignant Social History Narrative: [employer]. . Exercises 3 to 5 times a week, walking. Nonsmoker. Alcohol use: 1-2 times per months, 2 drinks per occasion. No concerns with safety or abuse What is your current living situation?: I presently have a place to live Problems where you live: no known problems In the past 12 months, utilities in danger of being shut off: no In past 12 months, lack of transportation kept you from medical appts, meetings, work, or getting things needed for daily living: no In the past 12 mos, have been you worried that your food would run out before you had money to buy more?: never true In the past 12 mos, the food you bought just didn't last and you didn't have money to buy more?: never true Smoking Status: Never smoker How often do you have a drink containing alcohol: monthly or less AUDIT-C Alcohol total score: 1 Non-prescribed substance use: denies use Caffeine: Yes How often does anyone, including family, friends and others, physically hurt you: never How often does anyone, including family, friends and others, insult or talk down to you: never How often does anyone, including family, friends and others, threaten you with harm: never How often does anyone, including family, friends and others, scream or curse at you: never History History 1 Elective abortions Para 0 Spontaneous abortions Hx # Term Pregnancies Ectopic pregnancies Hx # Pregnancies Multiple births Number of Living Children 0 OB - H&P: Exam Physical Exam Vital signs: Temp Pulse Resp BP Pulse Ox 98.4 F 81 18 102/60 99 11/30/24 11:25 11/30/24 12:35 11/30/24 11:25 11/30/24 12:35 11/30/24 12:41 Narrative: General: Alert and oriented, no acute distress Psych: Appropriate mood and affect heart rate discussions noted above. Assessment and Plan Assessment and plan (1) Gestational diabetes mellitus (GDM): Status: Acute (2) Anemia affecting , antepartum: Status: Acute (3) Marginal insertion of umbilical cord affecting management of mother: Status: Acute (4) Advanced maternal age (AMA) in : Status: Acute (5) Fibroid uterus: Status: Acute (6) arrhythmia affecting , antepartum: Status: Acute Plan Padma is a 34yo transferred from clinic at 32w0d [place] for suspected arrhythmia. is complicated by GDM A1, AMA, marginal cord insertion, uterine fibroids and family history of tetralogy of Fallot (patient's cousin). Extended monitoring with completed, BPP as above. - Transfer to [facility], Dr. Curtis of [facility] as accepting MD. - BMZ #1 administered prior to transfer - No magnesium sulfate as neuroprotection indicated as patient is 32w0d GA - Anticipate extended inpatient monitoring, [facility] consult, potential echo and Pediatric Cardiology eval - Plan of care discussed with Padma. She is in agreement with plan, expressed understanding. - Transfer packet completed.
--- NOTE | 2024-11-30 14:04 | PC.OBNST ---
NST Note NST Note Start: 11/30/24 11:18 Freq: ONCE Status: Active Protocol: Document 11/30/24 13:58 VMM (Rec: 11/30/24 14:03 VMM [id number]) NST Note 1 Para (# of births) 0 EDC 01/25/25 Gestational Age In 32 Weeks & 0 Days Weeks & Days High Risk Factors Diabetes - Gestational Diet Controlled Patient Presented Other with Complaint(s) of Other Complaints heart rate observed to have an abnormal pattern in clinic. The patient was brought to the center for further observation. heart rate continues to show an abnormal pattern at the center. Dr. Sandoval ordered a BPP test that resulted 09/22. heart rate continued to remain abnormal in pattern. Transfer to [facility] due to prematurity and abnormal heart rate. Reactive No Appropriate for No Gestational Age JANAY Rodriguez, RN Date 11/30/24 Reactive No Appropriate for No Gestational Age JANAY Perdue, JANAYC Date 11/30/24 OB NST charge Yes Complete NST Note Yes via Write Note The provider's electronic signature indicates the NST is reactive/appropriate for gestational age. *Note to provider: If an addendum is required, open the patient's chart and click on the note under the Nurse/Allied Health tab.
== END 2024-11-30 13:30 | disposition other institution (70) ==
LOC: OB OUT 11:07 → OB 11:11
PROVIDERS: Visit Provider Obstetrics & Gynecology
DX: O36.8330 Maternal care for abnormalities of the fetal heart rate or rhythm, third trimester, not applicable or unspecified (principal); O24.419 Gestational diabetes mellitus in pregnancy, unspecified control; Z3A.32 32 weeks gestation of pregnancy
CPT/HCPCS: 59025; 76819; G0463; J0702

== ENCOUNTER 2024-11-30 13:15 | Outpatient (CLI) | payer BC, SELFPAY | END 2024-11-30 13:16 | disposition home or self-care (01) | LOC: AMB 12-02 04:28 | PROVIDERS: Visit Provider Family Medicine | DX: O36.8930 Maternal care for other specified fetal problems, third trimester, not applicable or unspecified (principal); Z3A.32 32 weeks gestation of pregnancy | CPT/HCPCS: A0425; A0427 ==

== ENCOUNTER 2024-12-14 10:02 | Outpatient (CLI) | payer BC, SELFPAY | END 2024-12-14 10:03 | disposition home or self-care (01) | PROVIDERS: Visit Provider Obstetrics & Gynecology | DX: O16.3 Unspecified maternal hypertension, third trimester (principal) | CPT/HCPCS: 82565; 82570; 84156; 84450; 84460; 84520 ==

== ENCOUNTER 2024-12-18 09:43 | Outpatient (CLI) | payer BC, SELFPAY | END 2024-12-18 09:44 | disposition home or self-care (01) | PROVIDERS: Visit Provider Obstetrics & Gynecology | DX: O14.93 Unspecified pre-eclampsia, third trimester (principal) | CPT/HCPCS: 82565; 82570; 84156; 84450; 84460; 84520 ==

== ENCOUNTER 2024-12-25 08:48 | Outpatient (CLI) | payer BC, SELFPAY | END 2024-12-25 08:49 | disposition home or self-care (01) | LOC: NFLDREF 12-28 11:01 | PROVIDERS: Visit Provider Obstetrics & Gynecology | DX: O14.93 Unspecified pre-eclampsia, third trimester (principal) | CPT/HCPCS: 82565; 82570; 84156; 84450; 84460; 84520; 87081; 87653 ==

== ENCOUNTER 2025-01-01 08:15 | Outpatient (CLI) | payer BC, SELFPAY | END 2025-01-01 08:16 | disposition home or self-care (01) | LOC: NFLDREF 01-04 06:52 | PROVIDERS: Visit Provider Obstetrics & Gynecology | DX: O13.3 Gestational [pregnancy-induced] hypertension without significant proteinuria, third trimester (principal); O24.419 Gestational diabetes mellitus in pregnancy, unspecified control; O09.523 Supervision of elderly multigravida, third trimester; Z3A.36 36 weeks gestation of pregnancy | CPT/HCPCS: 82565; 82570; 84156; 84450; 84460; 84520 ==

== ENCOUNTER 2025-01-03 16:13 | Inpatient (IN) | payer BC, SELFPAY ==
[2025-01-03] VITALS (7 sets, daily range): BP systolic 98–147; BP diastolic 57–96; PULSE 73–111; RESP 12–16; TEMP 36.7–36.8; O2SAT 97; BMI 31.1
[2025-01-03 17:35] LABS: Hematocrit* 36.0 % (33.0-51.0); Hemoglobin* 12.1 gm/dL (12.0-16.0); Immature Granulocytes Abs Auto 0.07 K/uL (0.00-0.30); Immature Granulocytes Pct Auto 0.6 %; Mean Corpuscular HGB Conc 34 gm/dL (32-36); Mean Corpuscular Hemoglobin 30 pg (26-34); Mean Corpuscular Volume 89 fL (80-100); RDW Coefficient of Variation % 13.6 % (11.5-15.5); Red Blood Count* 4.05 m/uL (4.00-5.20); White Blood Count* 10.90 K/uL (4.50-11.00)
[2025-01-03 17:40] LABS: Lymphocytes Absolute Auto 1.80 K/uL (0.90-2.90); Slide Review Reflex No
[2025-01-03 17:50] LABS: Creatinine* 0.4 mg/dL (0.5-1.5); Est. Creatinine Clearance* 146.72; Estimated Glomerular Filt Rate 131 ml/min
[2025-01-03 17:51] LABS: Alanine Aminotransferase* 23 U/L (4-35); Aspartate Amino Transferase* 22 U/L (12-35)
--- NOTE | 2025-01-03 17:58 | P.LDBA_ITS ---
Subjective History of Present Illness Date Seen: 01/03/25 Narrative: Patient is being admitted to Labor and Delivery for scheduled IOL. She is a 34 year old at 37.0 weeks gestation. Her full history and physical was dictated by Dr. Berg on 12/25. Please see this for details. Active movement. Denies LOF, vaginal bleeding or abnormal vaginal discharge. Intermittent contractions. BP mild ranging. Denies any persistent headache, vision changes, SOB, right upper quadrant/epigastric pain, or rapidly expanding edema. Specific Issues/Plans G 1 P 0 : Nabeel # PACs * Transferred at 32 weeks (baseline 140, would sporadically seem to drop to 70s but US would show HR in 120-160s) * Hospitalized 11/30- at [facility] for this indication. NST was notable for periods were heart rate drops off for at most 2 minutes at a time; overall reactive and reassuring tracing concerning for possible bradyarrhythmia versus frequent PACs. She had normal echocardiogram and normal US during her hospitalization and had consultation with Pediatric Cardiology. She received a course of corticosteroids. * EKG is recommended. 1% risk of tachyarrythmia. PACs most often resolve on their own. Check heart tones weekly through dopplers or ultrasounds. * MFM visits scheduled weekly. * Per MFM node on 12/15/2024 the previous PAC noted appear to have resolved. * No arrhythmia noted on MFM visit on 12/22/2024. # Preeclampsia vs gestational HTN (diagnosed at MFM visit on 12/15/24) * HELLP labs: AST minimally elevated at 36 * Protein:creatinine = 1.65 on 12/14. 24 hour urine ordered for 12/18: Normal 24 hour urine - 286mg/day * Twice weekly surveillance, can monitor heart rate at that time * Given elevated AST, recommended 2 times weekly preeclampsia labs until transaminitis resolves * Q. 3 weeks growth * Delivery at 37.0 weeks if no severe features noted prior to that time or evidence of concomitant growth restriction. * surveillance sheet: Filled out on December 18 * 2 times weekly BPP (Wednesday in [place], Wednesday with MFM at ) * Weekly labs on Wednesday #GDMA1 1-h glucose screen 199. Patient ate prior to drinking glucola, wants to do 3-h GTT 3-h GTT 11/10: 99/208/179/168 Diabetes Education/nutrition referral Serial growth US ongoing per above #Marginal cord insertion [x] Serial growth US per MFM given MCI and low normal EFW on 09/20 at 18% only IF progress to velamentous, add weekly testing at 36 weeks [x] testing sheet # Advanced maternal age Low risk NIPT 81mg ASA ongoing Level 2 ultrasound - see below # History of infertility. Went through IUI x3. Conceived spontaneously! # Patient's cousin born with tetralogy of fallot # Fibroid uterus - Pedunculated left adnexal fibroid: 2.0 x 2.1 x 3.4 cm. Intramural fundal fibroid: 9 x 9 x 9 mm. Additional fundal fibroid: 2.1 x 1.5 x 1.4 cm. # HepB non immune - low risk, will consider vaccine H&P: 12/25 Dr. Berg Imaging: Level 2 08/30: Visualized anatomy is normal, suboptimal views of face/lips, cardiac views, hands. Repeat US with MFM in 3-4 weeks. EFW 239g at 22%, AC 39%. Placenta is fundal/ant/posterior, no previa, marginal cord insertion. MVP 3.8cm. Cx 44mm. [ ] repeat US with MFM 10/23: EFW 876g at 18th percentile, AC 28%. heart rate 157. MVP 5.7 cm 11/17: EFW 1520g at 37%ile - BPD 56%, HC 29%, AC 54%, FL 17%. Vertex. MVP 7.6 cm. Level 2 ultrasound 12/01/2024: 32 weeks, 1 day. Cephalic, anterior bilobed placenta with marginal cord insertion, three-vessel cord, MVP 7.2 cm, EFW 14%, AC 13% normal visualized anatomy, no evidence of arrhythmia on ultrasound. echo 12/01/24: Normal cardiac anatomy, frequent conducted premature atrial contractions and periods of atrial bigeminy with atrial and then take yearly rates oscillating between 120 in 150. No episodes of bradycardia. Normal size and function of both ventricles. No pericardial effusion or hydrops. US 12/14: cephalic, anterior bilobed placenta with marginal insertion, RICHA 15.9, no evidence hydrops. MFM on December 15: BPP 8/8. No arrhythmia was noted 12/22/24: EFW 14%, AC 17%. SDP 5.7 cm. BPP 8/8 Vaccinations: COVID: plans at work Flu: plans at work Tdap: 11/17/24 RSV: received GBS: 12/25/24 Last pap: -2023 NIL, neg HPV OB - Problem Based A/P Additional Plan (1) Gestational hypertension: Status: Acute Plan: - Between mild ranging and normal - Pre-eclampsia labs on 01/03/25: Hgb 12.1 Plt 314 Cr 0.4 ALT 23 AST 22 (2) Gestational diabetes mellitus (GDM): Status: Acute Plan: - A1 - Diabetic management per intrapartum protocol (3) Marginal insertion of umbilical cord affecting management of mother: Status: Acute (4) arrhythmia affecting , antepartum: Status: Acute Plan: - resolved (5) Advanced maternal age (AMA) in : Status: Acute Plan Induction - SVE 2/50/-1, moderate soft, anterior - Cook cath placed at: 1820, 60cc/30cc - Titrating pitocin 6hr after cook cath placement - Pain management plan: Epidural eventually Wellbeing NST: 130 bpm, moderate variability, +acceleration, negative decels. [place]: Q4-5 minutes OB Exam Physical Exam Vital signs: Temp Pulse Resp BP Pulse Ox 98.0 F 100 16 147/96 H 97 01/03/25 16:30 01/03/25 16:30 01/03/25 16:30 01/03/25 16:30 01/03/25 16:28 Narrative: Physical exam: General: No acute distress Psych: Alert and oriented x3, full affect HEENT: Normocephalic, atraumatic Lungs: Unlabored breathing Neuro: No focal deficit. Mentating appropriately Pelvic exam:
[2025-01-03 19:15] LABS: Protein Creatinine Ratio Urine 0.18 (0-0.19)
[2025-01-04] VITALS (109 sets, daily range): BP systolic 98–151; BP diastolic 55–80; PULSE 61–137; RESP 12–20; TEMP 36.5–37.6; O2SAT 79–100
[2025-01-04] MEDS: LACTATED RINGERS 1000 ML 1,000 ML 123 ML IV (00:28)
[2025-01-04] MEDS: OXYTOCIN 30 unit/500 ML in NS 30 UNIT/500 ML BAG IVPB (00:31)
[2025-01-04] MEDS: LACTATED RINGERS 1000 ML 1,000 ML 125 ML IV ×2 (02:58→07:39)
[2025-01-04] MEDS: LIDOCAINE 2% (PF) 5 ML VIAL EPIDURAL (02:59)
[2025-01-04] MEDS: ROPIVACAINE 0.2 % PF 10 ML INJ 20 MG EPIDURAL (03:01)
[2025-01-04] MEDS: ROPIVACAINE 0.2% 100 ml 100 ML 12 MG EPIDURAL ×2 (03:04→11:09)
--- NOTE | 2025-01-04 03:09 | PM.ANBPRC ---
[facility] Medical History Irregular periods ?N92.6 - Irregular menstruation, unspecified (ICD-10) Anemia affecting , antepartum ?O99.019 - Anemia complicating , unspecified trimester (ICD-10) Female infertility, primary ?N97.9 - Female infertility, unspecified (ICD-10) Anxiety ?F41.9 - Anxiety disorder, unspecified (ICD-10) Surgical History H/O myomectomy ?Z98.890 - Other specified postprocedural states (ICD-10) History of hysteroscopy ?Z98.890 - Other specified postprocedural states (ICD-10) Family History Aunt Breast cancer Paternal Grandfather Colon cancer Sister GIST (gastrointestinal stromal tumor), malignant Father Prostate cancer Social History 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 . Exercises 3 to 5 times a week, walking. Nonsmoker. Alcohol use: 1-2 times per months, 2 drinks per occasion. No ETOH during . No concerns with safety or abuse. Lives in [facility] with and dog. What is your current living situation?: I presently have a place to live Problems where you live: no known problems In the past 12 months, utilities in danger of being shut off: no In past 12 months, lack of transportation kept you from medical appts, meetings, work, or getting things needed for daily living: no In the past 12 mos, have been you worried that your food would run out before you had money to buy more?: never true In the past 12 mos, the food you bought just didn't last and you didn't have money to buy more?: never true Smoking Status: Never smoker How often do you have a drink containing alcohol: monthly or less AUDIT-C Alcohol total score: 1 Non-prescribed substance use: denies use Caffeine: Yes How often does anyone, including family, friends and others, physically hurt you: never How often does anyone, including family, friends and others, insult or talk down to you: never How often does anyone, including family, friends and others, threaten you with harm: never How often does anyone, including family, friends and others, scream or curse at you: never Meds Home Medications and Allergies Home Medications ?Medication ?Instructions ?Recorded ?Confirmed ?Type cholecalciferol (vitamin D3) 50 50 mcg PO QDAY 06/23/23 01/03/25 History mcg (2,000 unit) capsule docosahexaenoic acid 200 mg 200 mg PO DAILY 06/23/23 01/03/25 History capsule ( DHA) lactobacillus combination no.4 3 3,000 mmu cells PO QDAY 06/23/23 01/03/25 History billion cell capsule (Probiotic) magnesium carb,citrate,oxide 300 mg PO DAILY 06/16/24 01/03/25 History psyllium husk 0.4 gram capsule 0.4 g PO ONCE 06/16/24 01/03/25 History (Daily Fiber) aspirin 81 mg chewable tablet 81 mg PO QDAY 10/11/24 01/03/25 History Blood Glucose Meter #1 ea 11/10/24 01/03/25 Rx Test Strips #100 ea 11/10/24 01/03/25 Rx lancets #100 ea 11/10/24 01/03/25 Rx sennosides 8.6 mg tablet (senna) 17.2 mg PO BID 11/30/24 01/03/25 History polysaccharide iron complex 200 mg 200 mg PO QDAY 12/14/24 01/03/25 History iron capsule (EZFE 200) polyethylene glycol 3350 17 4 g PO QDAY PRN 12/18/24 01/03/25 History gram/dose oral powder (Miralax) Allergies Allergy/AdvReac Type Severity Reaction Status Date / Time amoxicillin Allergy Mild Verified 01/01/25 08:40 Results Labs Labs: Laboratory Results - last 24 hr 01/03/25 01/03/25 01/03/25 17:15 17:15 17:15 WBC Cancelled 10.90 RBC Cancelled 4.05 Hgb Cancelled Hct MCV MCH MCHC RDW Coeff of Kam Plt Count Neut % (Auto) Lymph % (Auto) [place] % (Auto) Eos % (Auto) Baso % (Auto) Neut # (Auto) Lymph # (Auto) [place] # (Auto) Eos # (Auto) Baso # (Auto) Abs Immat Gran (auto) Imm/Tot Granulo (auto) Creatinine Estimated Creat Clear Estimated GFR AST ALT Urine Creatinine Protein/Creatinin Ratio Urine Total Protein Blood Type Antibody Screen 01/03/25 01/03/25 01/03/25 17:15 17:15 17:15 WBC RBC Hgb 12.1 Hct Cancelled 36.0 MCV Cancelled 89 MCH Cancelled MCHC RDW Coeff of Kam Plt Count Neut % (Auto) Lymph % (Auto) [place] % (Auto) Eos % (Auto) Baso % (Auto) Neut # (Auto) Lymph # (Auto) [place] # (Auto) Eos # (Auto) Baso # (Auto) Abs Immat Gran (auto) Imm/Tot Granulo (auto) Creatinine Estimated Creat Clear Estimated GFR AST ALT Urine Creatinine Protein/Creatinin Ratio Urine Total Protein Blood Type Antibody Screen 01/03/25 01/03/25 01/03/25 17:15 17:15 17:15 WBC RBC Hgb Hct MCV MCH 30 MCHC Cancelled 34 RDW Coeff of Kam 13.6 Plt Count Cancelled 314 Neut % (Auto) 76.3 H Lymph % (Auto) 16.1 L [place] % (Auto) 6.6 Eos % (Auto) 0.1 Baso % (Auto) 0.3 Neut # (Auto) 8.30 H Lymph # (Auto) 1.80 [place] # (Auto) 0.70 Eos # (Auto) 0.01 Baso # (Auto) 0.03 Abs Immat Gran (auto) 0.07 Imm/Tot Granulo (auto) 0.6 Creatinine 0.4 L Estimated Creat Clear 146.72 Estimated GFR 131 AST 22 ALT 23 Urine Creatinine Protein/Creatinin Ratio Urine Total Protein Blood Type O Positive Antibody Screen NEGATIVE 01/03/25 18:25 WBC RBC Hgb Hct MCV MCH MCHC RDW Coeff of Kam Plt Count Neut % (Auto) Lymph % (Auto) [place] % (Auto) Eos % (Auto) Baso % (Auto) Neut # (Auto) Lymph # (Auto) [place] # (Auto) Eos # (Auto) Baso # (Auto) Abs Immat Gran (auto) Imm/Tot Granulo (auto) Creatinine Estimated Creat Clear Estimated GFR AST ALT Urine Creatinine 43.5 Protein/Creatinin Ratio 0.18 Urine Total Protein 8 Blood Type Antibody Screen Vital Signs Vital Signs: Last Vital Signs Temp 98.3 F 01/03/25 22:36 Pulse 104 H 01/04/25 03:08 Resp 12 01/04/25 01:31 BP 120/64 01/04/25 03:08 Pulse Ox 99 01/04/25 03:07 Weight: 74.752 kg Height: 154.94 cm Anesthesia Procedures Epidural Insertion Patient Location: OB Start Time: : Stop Time: 03:09 Start Date: 01/04/25 Stop Date: 01/04/25 Reason for Block: procedure for pain Patient Position: sitting Performed By: Jasvir Mchugh Preanesthetic Checklist: IV checked, risks and benefits discussed, surgical consent, monitors and equipment checked, pre-op evaluation, timeout performed and anesthesia consent Prep: chlorhexidine gluconate Monitoring: blood pressure monitoring, continuous pulse oximetry and heart rate Approach: midline Vertebral Space: lumbar (1-5) Epidural Technique: CRICKET air Needle Type: Tuohy needle Injection Technique: continuous catheter Needle gauge: 17 Needle Length (cm): 10 cm Needle Insertion Depth (cm): 7 Catheter Gauge: 19 Catheter Type: multi-orifice Catheter at skin depth (cm): 13 Test Dose Result: negative and lidocaine 1.5% with epinephrine 1 to 200,000
[2025-01-04] MEDS: PHENYLEPHRINE 100 MCG/ML SYRINGE IVP ×4 (03:47→04:47)
[2025-01-04] MEDS: ePHEDrine sulfate 5 MG/ML inj 10 MG IVP (04:48)
--- NOTE | 2025-01-04 07:05 | PM.OBPNL ---
Subjective Time Seen by Provider: 11:00 Date Seen: 01/04/25 Narrative: Padma is a 34yo at 37w0d GA admitted for IOL for preeclampsia without SF. is otherwise complicated by PACs (seemingly resolved), GDMA1, marginal cord insertion, AMA, fibroid uterus with history of hysteroscopic myomectomy. IOL has included cook catheter and pitocin augmentation. She is s/p epidural placement, after which pitocin was discontinued due to hypotension and lates. status successfully recovered, pitocin resumed. Suspect SROM at 0617 when Cook was removed given clear fluid noted on pad by RN. Patient has been resting comfortably. She continues to contract regularly. Agreeable to exam. Objective Exam: General: Alert and oriented, in no acute distress Psych: Appropriate mood and affect Abdomen: Gravid. EFW by US on 12/22 was 2252g at 14%ile, AC 17%ile. Cervix: 4.5/80/0. Palpable bag of water felt. Counseled on risks/benefits to AROM of forebag and she consented. AROM performed with return of thin suspected meconium stained fluid. FHR: Category 1. Baseline 130bpm, moderate variability, accelerations present, no decelerations. [place]: Contractions q2-3 minutes Vital Signs: Last Vital Signs Temp 99.2 F 01/04/25 06:25 Pulse 85 01/04/25 06:42 Resp 12 01/04/25 06:25 BP 135/77 01/04/25 06:42 Pulse Ox 96 01/04/25 04:22 Plan Plan: Padma is a 34yo at 37w0d GA admitted for IOL for preeclampsia without SF. is otherwise complicated by PACs (seemingly resolved), GDMA1, marginal cord insertion, AMA, fibroid uterus with history of hysteroscopic myomectomy. IOL has included cook catheter and pitocin augmentation. Suspected SROM at 6:30 a.m., however a bag of water was palpable on my exam and cervix was unchanged. Consent for a AROM of forebag was obtained, completed without difficulty. Thin suspected meconium was noted as fluid was slightly brown stained. Plan Pediatrics for delivery. Anticipate next exam in 4 hours, sooner as clinically indicated. BT O+, GBS negative.
[2025-01-04] MEDS: LACTATED RINGERS 1000 ML 1,000 ML 1200 ML IV (12:09)
--- NOTE | 2025-01-04 16:52 | W.PM.VAGD1_ITS ---
Procedure Procedure Done: Global Procedure Details: Normal spontaneous vaginal delivery 2nd degree perineal laceration repair Events: Pre-Eclampsia and Labor Induction Delivery augmentation: rupture of membranes Delivery monitor: external FHT Route of delivery: Laceration description: Perineal - 2nd Degree Estimated blood loss (mL): 306 Anesthesia type: Epidural Disposition: floor Complications: None Narrative: Padma is a 34 yo at 37w0d GA admitted for induction of labor for preeclampsia without severe features. is complicated by PACs (seemingly resolved), GDMA1, marginal cord insertion, AMA, fibroid uterus with history of hysteroscopic myomectomy. heart tones on admission were category 1. Her labor was induced with Cook catheter and Pitocin and epidural was utilized for pain management. Status of bag of johansen: AROM of forebag, very thin meconium-stained fluid. heart tones during active labor were category 1 and 2. She was complete at 1204 and started pushing at 1212. She made excellent descent throughout the second stage of labor, and had a normal spontaneous vaginal delivery at 1230. heart tones during second stage of labor were category 2 for intermittent variable decelerations, with rapid return to normal baseline. Baby delivered OA, restituted JACOBY and the anterior and posterior shoulders delivered without difficulty. Nuchal cord: none. The cord was clamped and cut after delayed cord clamping. Active management of the third stage occurred with IV pitocin and gentle cord traction and the placenta delivered spontaneous and intact at 1230. Cord gases sent: no Cord blood sent for infant ABO: no details: - Liveborn female fetus at 1230 - weight 2310g - APGARs were 8 and 9 at 1 and 5 minutes respectively Perineum and vagina were inspected, and the following lacerations were noted: Small second-degree laceration that extended up the left labia. My presence was required in the operating room at this time, where Jorge Rendon CNM proceeded with repair on my behalf after patient consented for this transition of care. Repair was completed in the usual fashion with 3-0 under existing epidural analgesia. Excellent hemostasis was noted. The following counts were correct: sponges, needles, instruments. Mother and in stable condition following the . [place] Gender: Female presentation: vertex Placental Delivery Description: Spontaneous Cord Description: 3 Vessels total score - 1 minute: 8 total score - 5 minute: 9
[2025-01-04] MEDS: IBUPROFEN 600 MG TABLET PO (20:38)
[2025-01-05 01:31] VITALS: BP 111/74; PULSE 74; RESP 16; O2SAT 98
[2025-01-05 04:16] VITALS: BP 122/79; PULSE 70; RESP 16; TEMP 36.4; O2SAT 99
[2025-01-05 05:58] LABS: Hemoglobin* 9.8 gm/dL (12.0-16.0)
[2025-01-05] MEDS: IBUPROFEN 600 MG TABLET PO ×2 (08:02→15:39)
[2025-01-05] MEDS: DOCUSATE SODIUM 100 MG CAPSULE PO (08:03)
--- NOTE | 2025-01-05 08:48 | PM.OBPNVD1 ---
OB - PN:Subj Subjective Date Seen: 01/05/25 Narrative: Padma is a 34 y.o. G 1 P 1 who was admitted to [facility] for IOL t 37w. ?She had a NVD that was uncomplicated. The patient feels well. ?The pain is well controlled with current medications. ?She has no new complaints. ?She is breast feeding and reports things are going ok. Baby has been sleepy. the patient has done well.? Vitals have been stable.? She has remained afebrile.? Has a good appetite, is tolerating a general diet. ?She is voiding without difficulty.? She is passing gas and has not had a bowel movement.? She is ambulating and denies any dizziness.? Has small amount of rubra lochia. Problems: none OB - PN: Obj Exam Physical Exam: Vital signs: Temp Pulse Resp BP Pulse Ox O2 Del Method 97.5 F L 70 16 122/79 99 Room Air 01/05/25 04:16 01/05/25 04:16 01/05/25 04:16 01/05/25 04:16 01/05/25 04:16 01/05/25 04:16 Narrative: GENERAL APPEARANCE:? normal affect, alert, no distress MOOD:? appropriate CHEST:? clear to auscultation HEART:? regular rate and rhythm ABDOMEN:? soft, non-tender the uterine fundus is -1cm below Umbilicus, Midline and is appropriate for the stage of recovery. PERINEUM:? not assessed; no concerns EXTREMITIES:? normal and no edema OB - PN: Obj Data Labs Labs: Laboratory Results - last 24 hr 01/05/25 05:38 Hgb 9.8 L OB - PN: A/P Delivery Assessment and Plan (1) Gestational hypertension: Status: Acute (2) Gestational diabetes mellitus (GDM): Status: Acute (3) Marginal insertion of umbilical cord affecting management of mother: Status: Acute (4) arrhythmia affecting , antepartum: Status: Acute (5) Advanced maternal age (AMA) in : Status: Acute Plan day: 1 Plan: routine care Comments: Anticipat d/c tomorrow May see if desires.
[2025-01-05 08:50] VITALS: BP 114/74; PULSE 89; RESP 16; TEMP 36.5; O2SAT 96
--- NOTE | 2025-01-05 11:18 | PM.ANPOST ---
Post Anesthesia Note Post Anesthesia Note Patient seen: Inpatient Respiratory Status: adequate Cardiovascular Status: adequate Mental Status: baseline Pain: adequate Temp: baseline Anesthetic awareness: N/A Complications: none Follow care: none
[2025-01-05 13:00] VITALS: BP 110/79; PULSE 88; RESP 16; TEMP 36.6; O2SAT 97
[2025-01-05 16:24] VITALS: BP 125/79; PULSE 87; RESP 16; TEMP 36.6; O2SAT 97
[2025-01-06 00:26] VITALS: BP 107/71; PULSE 72; RESP 16; TEMP 36.8; O2SAT 98
[2025-01-06] MEDS: IBUPROFEN 600 MG TABLET PO (02:58)
[2025-01-06 04:37] VITALS: BP 107/70; PULSE 74; RESP 16; TEMP 36.8; O2SAT 94
[2025-01-06 09:17] VITALS: BP 129/86; PULSE 74; RESP 16; TEMP 36.9; O2SAT 97
[2025-01-06] MEDS: ACETAMINOPHEN 500 MG TABLET 1000 MG PO (09:22)
[2025-01-06] MEDS: DOCUSATE SODIUM 100 MG CAPSULE PO (09:22)
--- NOTE | 2025-01-06 10:54 | P.DS_ITS ---
DS: Providers Provider Date Seen: 01/06/25 Date of admission: 01/03/25 16:13 Primary care physician: Not a Local Provider Admitting Clinician: Goldie Baez MD Attending Physician on discharge: Billie Dyer MD Date of Discharge: 01/06/25 DS: Diagnosis Discharge Diagnosis (1) Status post normal vaginal delivery: Status: Acute (2) Gestational hypertension: Status: Acute (3) Gestational diabetes mellitus (GDM): Status: Acute (4) Acute blood loss anemia: Status: Acute Exam Const: Vital Signs, click to edit/add: Vital Signs - 24 hr 01/05/25 13:00 01/05/25 16:24 01/06/25 00:26 Temperature 97.8 F 97.8 F 98.3 F Pulse Rate [Pulse Oximeter] 88 87 72 Respiratory Rate 16 16 16 Blood Pressure [Ri ght Arm] 110/79 125/79 107/71 Pulse Oximetry 97 97 98 Oxygen Delivery Me thod Room Air Room Air Room Air 01/06/25 04:37 01/06/25 09:17 Temperature 98.3 F 98.5 F Pulse Rate [Pulse Oximeter] 74 74 Respiratory Rate 16 16 Blood Pressure [Ri ght Arm] 107/70 129/86 Pulse Oximetry 94 97 Oxygen Delivery Me thod Room Air Room Air Documenting provider has reviewed patient's vital signs: yes Common normals: no apparent distress and oriented x3 General appearance: cooperative and comfortable Resp: Common normals: normal respiratory effort Cardio: Common normals: regular rate Rate: regular rate GI: Common normals: soft to palpation and non-tender Inspection: normal to inspection Palpation: soft Extremity: Common normals: normal to inspection and no pedal edema Neuro: Common normals: oriented x3 Psych: Common normals: affect normal OB - DS: Summary Hospital Course Hospital Course: The patient is a 34 year old G 1 P 1001 that was admitted to the Center on 01/03/25 for induction of labor at 37 weeks gestation. She had an uncomplicated vaginal delivery. She delivered a viable female infant. She is working on breast feeding. the patient has done well. Peripartum Data Infant delivery method: Vaginal Laceration description: Perineal - 2nd Degree Episiotomy description: None complications: none [place] Infant Gender: Female Infant Discharge Plan: Home Status at Discharge Functional status at discharge: independent ambulation Time Spent with Patient Time attestation: Total time spent providing and/or coordinating discharge services: Discharge Plan Discharge Disposition: Home, Self-Care Date of Admission: 01/03/25 16:13 Attending Provider on Discharge: Billie Dyer Consulting Providers: Monika Sandoval Primary Care Provider: Provider,Not a Local Condition: Stable Anticipated Discharge Date/Time: 01/06/25 12:00 Discharge Medications: New ibuprofen 600 mg Tablet 600 mg PO Q6H PRNQty: 30 0RF Continued magnesium carb,citrate,oxide 300 mg magnesium tablet 300 mg PO DAILY psyllium husk [Daily Fiber] 0.4 gram capsule 0.4 g PO ONCE sennosides [senna] 8.6 mg tablet 17.2 mg PO BID DHA 200 mg capsule 200 mg PO DAILY cholecalciferol (vitamin D3) 50 mcg (2,000 unit) capsule 50 mcg PO QDAY Probiotic 3 billion cell capsule 3,000 mmu cells PO QDAY Rx Instructions: administer with a meal EZFE 200 200 mg iron capsule 200 mg PO QDAY polyethylene glycol 3350 [Miralax] 17 gram/dose powder 4 g PO QDAY PRN Discontinued aspirin 81 mg tablet,chewable 81 mg PO QDAY No Action (DME) lancets Misc See Rx Instructions .MEDSUPPLY Qty: 100 3RF Rx Instructions: Test blood sugar 4 times daily, fasting and two hours after meals (DME) Test Strips Misc See Rx Instructions .MEDSUPPLY Qty: 100 3RF Rx Instructions: Test blood sugar 4 times daily. Fasting and two hours after meals. (DME) Blood Glucose Meter Mis See Rx Instructions .MEDSUPPLY Qty: 1 0RF Rx Instructions: As directed Discharge Orders: Discharge Order (Routine); Ordered 01/06/25 Ordered By: Billie Dyer Patient Education: OB Over the Counter Medication Information, OB Vaginal/Breast Feeding Activity Level: Activity as Tolerated Discharge Diet: Regular Follow Up Appointments: Provider,Not a Local [Primary Care Provider, Family Practice] Forms: MyHealth Info Instructions DS:Data Additional Comments Additional comments: hemoglobin 9.8
[2025-01-06 13:13] LABS: Glucose 2 Hour 164 mg/dl (70-155)
== END 2025-01-06 15:00 | disposition home or self-care (01) | DRG 560 ==
PROVIDERS: Obstetrics & Gynecology; Admitting Provider Obstetrics & Gynecology; Visit Provider Obstetrics & Gynecology
DX: O14.04 Mild to moderate pre-eclampsia, complicating childbirth (principal); O24.420 Gestational diabetes mellitus in childbirth, diet controlled; O70.1 Second degree perineal laceration during delivery; I95.9 Hypotension, unspecified; O77.0 Labor and delivery complicated by meconium in amniotic fluid; O90.81 Anemia of the puerperium; D62 Acute posthemorrhagic anemia; O43.193 Other malformation of placenta, third trimester; O34.13 Maternal care for benign tumor of corpus uteri, third trimester; D25.1 Intramural leiomyoma of uterus; O36.8330 Maternal care for abnormalities of the fetal heart rate or rhythm, third trimester, not applicable or unspecified; Z3A.37 37 weeks gestation of pregnancy; Z37.0 Single live birth
CPT/HCPCS: 01967; 36415; 59200; 82565; 82570; 82947; 82950; 84156; 84450; 84460; 84520; 85018; 85025; 85027; 86592; 86850; 86900; 86901; A9270; C1726; J2270; J2795; J7120